=== PATIENT | female | born 1945 | race Caucasian/White ===

== ENCOUNTER → 2018-01-21 09:18 | Outpatient (CLI) | payer MEDICARE, SELFPAY ==
[2018-01-21 10:18] LABS: Alanine Aminotransferase 25 IU/L (9-52); Aspartate Aminotransferase 25 IU/L (14-36); BUN Creatinine Ratio 28.3 (6-22); Blood Urea Nitrogen 17 mg/dL (7-17); Calcium 9.7 mg/dL (8.4-10.2); Carbon Dioxide 30 mmol/L (22-32); Chloride 104 mmol/L (98-107); Cholesterol 170 mg/dL (140-199); Estimated Glomerular Filt Rate > 60.0 mL/min (>60); Glucose 85 mg/dL (80-110); HDL Cholesterol 80 mg/dL (40-60); HEMOLYSIS < 15 (0-50); LDL Cholesterol Calculated 80 mg/dL (<100); Potassium 4.1 mmol/L (3.4-5.1); Sodium 142 mmol/L (137-145); Triglycerides 50 mg/dL (35-150)
== END ==
PROVIDERS: PCP Internal Medicine; Visit Provider Internal Medicine
DX: E78.00 Pure hypercholesterolemia, unspecified (principal); I10 Essential (primary) hypertension; E03.9 Hypothyroidism, unspecified
CPT/HCPCS: 36415; 80048; 80061; 84439; 84443; 84450; 84460

== ENCOUNTER → 2018-04-04 12:36 | Outpatient (CLI) | payer MEDICARE, SELFPAY ==
[2018-04-04 14:17] LABS: TSH w/ Reflex to FT4 0.45 uIU/mL (0.47-4.68)
[2018-04-04 15:29] LABS: Free T4, Direct Thyroxine 1.38 ng/dL (0.78-2.19)
== END ==
PROVIDERS: Family Provider Internal Medicine; PCP Internal Medicine; Visit Provider Internal Medicine
DX: E03.9 Hypothyroidism, unspecified (principal)
CPT/HCPCS: 36415; 84439; 84443

== ENCOUNTER → 2018-07-25 10:27 | Outpatient (CLI) | payer MEDICARE, SELFPAY ==
[2018-07-25 11:07] LABS: Alanine Aminotransferase 34 IU/L (9-52); Aspartate Aminotransferase 27 IU/L (14-36); Cholesterol 162 mg/dL (140-199); HDL Cholesterol 77 mg/dL (40-60); LDL Cholesterol Calculated 76 mg/dL (<100); Triglycerides 43 mg/dL (35-150)
[2018-07-25 11:54] LABS: TSH w/ Reflex to FT4 0.07 uIU/mL (0.47-4.68)
[2018-07-25 12:21] LABS: Free T4, Direct Thyroxine 1.44 ng/dL (0.78-2.19)
== END ==
PROVIDERS: PCP Internal Medicine; Visit Provider Internal Medicine
DX: E78.00 Pure hypercholesterolemia, unspecified (principal); E03.9 Hypothyroidism, unspecified
CPT/HCPCS: 36415; 80061; 84439; 84443; 84450; 84460

== ENCOUNTER → 2018-10-21 12:56 | Outpatient (CLI) | payer MEDICARE, SELFPAY ==
[2018-10-21 15:39] LABS: TSH w/ Reflex to FT4 2.08 uIU/mL (0.47-4.68)
== END ==
PROVIDERS: Family Provider Internal Medicine; PCP Internal Medicine; Visit Provider Internal Medicine
DX: E03.9 Hypothyroidism, unspecified (principal)
CPT/HCPCS: 36415; 84443

== ENCOUNTER → 2019-01-30 10:22 | Outpatient (CLI) | payer MEDICARE, SELFPAY ==
[2019-01-30 12:26] LABS: Alanine Aminotransferase 27 IU/L (9-52); Aspartate Aminotransferase 28 IU/L (14-36); Blood Urea Nitrogen 15 mg/dL (7-17); Calcium 9.7 mg/dL (8.4-10.2); Carbon Dioxide 31 mmol/L (22-32); Chloride 106 mmol/L (98-107); Cholesterol 179 mg/dL (140-199); Estimated Glomerular Filt Rate > 60.0 mL/min (>60); Glucose 81 mg/dL (80-110); HDL Cholesterol 84 mg/dL (40-60); HEMOLYSIS < 15 (0-50); LDL Cholesterol Calculated 84 mg/dL (<100); Potassium 4.3 mmol/L (3.4-5.1); Sodium 142 mmol/L (137-145); Triglycerides 55 mg/dL (35-150)
[2019-01-30 12:51] LABS: TSH w/ Reflex to FT4 1.73 uIU/mL (0.47-4.68)
== END ==
PROVIDERS: PCP Internal Medicine; Visit Provider Internal Medicine
DX: E03.9 Hypothyroidism, unspecified (principal); E78.00 Pure hypercholesterolemia, unspecified; I10 Essential (primary) hypertension
CPT/HCPCS: 36415; 80048; 80061; 84443; 84450; 84460

== ENCOUNTER → 2019-04-03 08:51 | Outpatient (CLI) | payer MEDICARE, SELFPAY ==
--- NOTE | 2019-04-10 16:35 | P.PFT.S_ITS ---
Pulmonary Function Test Referral & Results Date Patient Seen: 04/03/19 Requesting provider: Aakash Koch Results: The spirometry demonstrates an FVC of 2.68 L which is 91% of predicted. The FEV1 was measured at 2.02 L which is 91% of predicted. The FEV1/FVC ratio was 75 which is 100% of predicted. Following the administration of bronchodilator there was a 39% improvement in FEF 25-75%. Lung volumes show an SVC of 2.34 L which is 83% of predicted. The diffusing capacity was measured at 20.05 which is 82% of predicted. The maximum voluntary ventilation was normal Interpretation: This study demonstrates minimal obstructive lung disease with evidence of some improvement in small airway flow based on improvement in FEF 25-75% Compared to PFTs performed in October 2013, current study shows improvement in FE V1 as well as lung volumes and diffusing capacity
== END ==
PROVIDERS: PCP Internal Medicine; Visit Provider Internal Medicine
DX: J44.9 Chronic obstructive pulmonary disease, unspecified (principal)
CPT/HCPCS: 94060; 94726; 94729

== ENCOUNTER → 2019-04-28 11:38 | Outpatient (CLI) | payer MEDICARE, SELFPAY ==
--- NOTE | 2019-04-28 | DI.US.S_ITS ---
PROCEDURE: US PELVIC COMPLETE INDICATIONS: LEFT LOWER QUADRANT PAIN TECHNIQUE: Real-time scanning was performed of the pelvic organs, with image documentation. Additional endovaginal scanning was necessary due to incomplete visualization of the adnexal and endometrial structures by transabdominal scanning. COMPARISON: None. FINDINGS: Transabdominal scanning: Limited scanning through the kidneys shows no hydronephrosis. No pathologic free abdominal or pelvic fluid. Endovaginal scanning: Uterus: Prior hysterectomy. Ovaries: Ovaries not identified. No adnexal masses seen. There is a compressible varicose vein within the left lower quadrant in the region of pain. IMPRESSION: Left lower quadrant varicosity noted in the region of patient's symptoms. Dictated by: Justin DEL VALLE Interpreted: Catie Pineda MD on 04/28/2019 at 16:32 Approved by: Catie Pineda M.D. on 04/28/2019 at 17:32
== END ==
PROVIDERS: PCP Internal Medicine; Visit Provider Physician Assistant
DX: R10.32 Left lower quadrant pain (principal)
CPT/HCPCS: 76856

== ENCOUNTER → 2019-05-07 12:04 | Outpatient (CLI) | payer MEDICARE, SELFPAY ==
--- NOTE | 2019-05-07 | DI.MG.S_ITS ---
BILATERAL DIGITAL SCREENING MAMMOGRAM 3D/2D WITH CAD: 05/07/2019 CLINICAL: Routine screening. Comparison is made to exams dated: 01/15/2017 mammogram, 01/12/2016 mammogram, and 06/02/2014 mammogram - [facility]. There are scattered fibroglandular elements in both breasts. Current study was also evaluated with a Computer Aided Detection (CAD) system. No significant masses, calcifications, or other findings are seen in either breast. There has been no significant interval change. IMPRESSION: NEGATIVE There is no mammographic evidence of malignancy. A 1 year screening mammogram is recommended. This exam was interpreted at Station ID: [id number]. NOTE: For mammograms, a report in lay terms will be sent to the patient. Approximately 15% of breast malignancies will not be visualized mammographically. In the management of a palpable breast mass, a negative mammogram must not discourage biopsy of a clinically suspicious lesion. Electronically Signed By: Madison judd/melly:05/07/2019 13:48:05 letter sent: Normal Exam ACR BI-RADS Category 1: Negative [id number]
== END ==
PROVIDERS: PCP Internal Medicine; Visit Provider Physician Assistant
DX: Z12.31 Encounter for screening mammogram for malignant neoplasm of breast (principal)
CPT/HCPCS: 77063; 77067

== ENCOUNTER → 2020-01-18 10:41 | Outpatient (CLI) | payer MEDICARE, OTHER, SELFPAY ==
--- NOTE | 2020-01-18 | DI.RAD.S_ITS ---
PROCEDURE: FL BARIUM SWALLOW W SPEECH INDICATIONS: Food in pharynx causing asphyxiation/ Lab TECHNIQUE: Examination was conducted in conjunction with speech pathology per standard protocol. In the lateral projection, filming was performed of the patient swallowing. AP projection filming may also be performed with patient swallowing. COMPARISON: None. FINDINGS: Function: The oral preparatory phase appears normal, with proper containment. The subsequent oral propulsive phase, pharyngeal phase, and esophageal phase of swallowing also appear normal with all proffered substances. No laryngotracheal penetration or aspiration. No pathologic vallecular pooling. A 13 mm barium tablet readily passed from the oropharynx to the stomach. Morphology: No cricopharyngeal bar is identified. No cervical esophageal webs. No Zenker's diverticulum. No strictures. IMPRESSION: Normal examination without evidence of aspiration. Dictated by: Stacey Griffith MD, PhD on 01/18/2020 at 13:14 Approved by: Stacey Griffith MD, PhD on 01/18/2020 at 13:23
[2020-01-18 11:54] LABS: Add Manual Diff / Slide Review NO; Basophils Absolute Auto 0 /uL (0-100); Basophils Percent Auto 1.2 % (0-2); Eosinophils Absolute Auto 100 /uL (0-450); Eosinophils Percent Auto 3.7 % (2-4); Hematocrit 42.6 % (36-46); Hemoglobin 14.5 g/dL (12.0-16.0); Lymphocytes Absolute Auto 1200 /uL (1100-4500); Lymphocytes Percent Auto 33.7 % (25-40); Mean Corpuscular Hemoglobin 31.2 PG (26-34); Mean Corpuscular Volume 91.8 fL (80-100); Monocytes Absolute Auto 500 /uL (0-900); Monocytes Percent Auto 13.5 % (3-14); Neutrophils Absolute Auto 1800 /uL (1500-7000); Neutrophils Percent Auto 47.9 % (50-75); Platelet Count 177 X10^3/uL (150-400); Red Blood Cell Count 4.64 X10^6/uL (4.0-5.2); Red Cell Distribution Width 13.9 % (11.6-14.8); White Blood Cell Count 3.7 X10^3/uL (4.5-11.0)
[2020-01-18 12:07] LABS: Alanine Aminotransferase 20 IU/L (<35); Albumin 4.1 g/dL (3.5-5.0); Albumin Globulin Ratio 1.4 (1.0-2.8); Alkaline Phosphatase 54 U/L (38-126); Aspartate Aminotransferase 34 IU/L (14-36); BUN Creatinine Ratio 25.9 (6-22); Bilirubin Total 0.9 mg/dL (0.2-1.3); Blood Urea Nitrogen 14 mg/dL (7-17); Calcium 9.6 mg/dL (8.4-10.2); Carbon Dioxide 28 mmol/L (22-32); Chloride 108 mmol/L (98-107); Cholesterol 176 mg/dL (140-199); Estimated Glomerular Filt Rate > 60.0 mL/min (>60); Globulin 2.9 g/dL (1.7-4.1); Glucose 87 mg/dL (80-110); HDL Cholesterol 66 mg/dL (40-60); HEMOLYSIS < 15 (0-50); LDL Cholesterol Calculated 97 mg/dL (<100); Potassium 3.9 mmol/L (3.4-5.1); Sodium 140 mmol/L (137-145); Triglycerides 67 mg/dL (35-150)
[2020-01-18 12:41] LABS: Free T4, Direct Thyroxine 1.47 ng/dL (0.78-2.19); Vitamin D 25 Hydroxy (D3) 63.5 ng/mL (30.0-100.0)
[2020-01-18 12:55] LABS: Thyroid Stimulating Hormone 1.56 uIU/mL (0.47-4.68)
[2020-01-18 23:07] LABS: Triiodothyronine T3 Total 100 ng/dL (71-180)
--- NOTE | 2020-01-20 10:01 | ST.SWALLOW ---
Visit Care Team Role Provider Type Aakash Koch MD Attending Provider Physician Primary Care Provider Referring Provider Specialty: Wound Care Address: [address] [place] [address], [id number] Email: [email or web address] Modified Barium Swallow Study RECRUITER MANAGER Modified Barium Swallow Study Start: 01/18/20 13:38 Freq: Status: Active Protocol: Document 01/18/20 13:38 [id number] (Rec: 01/18/20 13:38 [id number]) Modified Barium Swallow Study Total Time Visit Start Time 11:30 Visit Stop Time 12:00 Total Visit Minutes [address] Aakash Koch Reason for Referral Aspiration concern, food sticking in throat Setting Setting Outpatient Care Patient Information Identification Type Name,ID Card Patient History The pt is a 74-yr-old female who c/o frequent mild coughing with liquids that often escalates to severe coughing stopped only, but consistently , with use of inhaler. She reports this occurring over the last ~1 yr. She denies difficulty swallowing solids. PMHx includes dx of COPD 5 yrs ago, for which she was treated medicinally. The pt stated that upon f/u with Pulmonology after 5 yrs of tx, she was cleared of COPD. The pt is in need of knee surgery and is concerned of complications with intubation that may trigger cough and result in damage or further complications to swallowing. MBS was ordered to assess swallow prior to surgery. Subjective Observations The pt arrived on time and provided case history. She was able follow all instructions throughout the evaluation. The pt is gluten intolerant; therefore, cookie trial was not administered. Patient Positioning Position View Lat-A/P Imaging Lateral View Textures Administered Trials Presented Thin Liquid via Spoon,Thin Liquid via Cup,Starks Liquid via Spoon,Starks Liquid via Cup,Honey Liquid via Spoon, Dysphagia Blenderized Textures Oral Phase Source: MBSIMP (TM) (C) Bolus Specific Scoring Grid Lip Closure No Impairment (WNL) Tongue Control During Bolus Hold No Impairment (WNL) Bolus Prep/Mastication No Impairment (WNL) Bolus Transport/Lingual Motion No Impairment (WNL) A/P Lingual Propulsion Delay No Oral Residue Minimal Impairment Residue Clearing No Impairment (WNL) Nasal Regurgitation No Additional Oral Phase Observations Oral Peripheral Exam: WNL. All features were symmetrical and WNL of strength, coordination and ROM. Pt has natural dentition in good condition. Oral Phase: WFL. Mild oral residue was observed, not uncommon with barium contrast. Posterior escape of oral residue to vallecula without swallow trigger was observed x2, which could increase risk of aspiration or trigger cough . Otherwise, oral swallow phase was WNL. Pharyngeal Phase Source: MBSIMP (TM) (C) Bolus Specific Scoring Grid Delayed Initiation of Pharyngeal Swallow No: With exception of oral residue posterior escape Number of Seconds Delayed (seconds) Swallow trigger was absent with posterior escape of oral residue x2 Soft Palate Elevation No Impairment (WNL) Tongue Base Strength/Range of Motion WFL Residue Along the Tongue Base Yes: Minimal to mild with liquids only Clearance of Residue Along Tongue Base No Impairment (WNL) Laryngeal Elevation No Impairment (WNL) Anterior Hyoid Movement No Impairment (WNL) Epiglottic Range of Motion No Impairment (WNL) Vallecular Residue Yes: Collection of oral residue only. No residue post active swallow. Clearance of Vallecular Residue No Impairment (WNL) Laryngeal Vestibular Closure No Impairment (WNL) Pharyngeal Stripping Wave No Impairment (WNL) Pharyngeal Contraction No Impairment (WNL) Posterior Pharyngeal Wall Residue No Upper Esophageal Sphincter Opening No Impairment (WNL) Residue in the Pyriform Sinuses Yes: Occ trace around mild osteophyte Clearance of Residue in the Pyriform No Impairment (WNL) Sinuses Esophageal Clearance Upright Position No Impairment (WNL) Pharyngoesophageal Backflow Observed No Additional Pharyngeal Phase Observations Mild protrusion of C6-C7 into pharynx was observed in video review, possibly early stage osteophyte. Occasionally, trace amounts of residual contrast in liquid trials was observed in pyriform sinuses at this level. No significant pooling or collection was observed, and contrast cleared completely with subsequent swallows. No penetration or aspiration was observed with all trials. The pt did exhibit frequent throat clearing, after majority of trials; however, her airway remained clear throughout the study. She had no complaints of sticking sensation. A/P View Textures Administered Trials Presented Starks Liquid via Cup, Dysphagia Blenderized Textures ,Barium Tablet A/P View Observations Pharyngeal Contraction No Impairment (WNL) Esophageal Clearance Upright Position No Impairment (WNL) Esophageal Observations Esophageal Function No abnormal esophageal function observed. Clinical Impressions Dysphagia Type Normal Swallow Findings The pt's swallow function is WNL and appears not to be the source of the pt's coughing symptoms. She is at very low risk of aspiration. During the exam, the pt exhibited consistent throat clearing, although her airway was clear. Other causes of cough worth consideration are asthma, particularly d/t resolution of cough with use of inhaler; GERD/LPR; habitualized throat clearing; and laryngospasm. Although no obvious esophageal impairment was observed in A/P view, GI consultation is recommended given the pt's symptoms, which are consistent with symptoms of GERD/LPR. Referral to Finisher Card Tender is also recommended for assessment of asthma. If asthma and GERD/LPR are ruled out, Speech Pathology services may be warranted for assessment of laryngospasm and /or treatment of chronic cough . No dysphagia therapy is warranted at this time. Recommendations Diet Liquids Order Thin Diet Order Regular Medication Recommendation As Tolerated Aspiration Precautions Recommended Precautions Upright at 90 Degrees,Small Bites/Sips Treatment Plan Recommended Referrals Other,GI Consult Additional Recommended Referrals Finisher Card Tender for asthma assessment. Compensatory Strategies Recommendations Sitting Upright (90 deg) Placement Recommendation After Discharge Home
== END ==
PROVIDERS: PCP Internal Medicine; Referring Provider Internal Medicine; Visit Provider Internal Medicine
DX: R05 Cough (principal); T17.220A Food in pharynx causing asphyxiation, initial encounter; J44.9 Chronic obstructive pulmonary disease, unspecified; E03.9 Hypothyroidism, unspecified; E78.00 Pure hypercholesterolemia, unspecified; M17.0 Bilateral primary osteoarthritis of knee
CPT/HCPCS: 36415; 74230; 80053; 80061; 82306; 84439; 84443; 84480; 85025; 92611

== ENCOUNTER → 2020-05-04 11:04 | Outpatient (CLI) | payer MEDICARE, OTHER, SELFPAY ==
[2020-05-04 11:58] LABS: Add Manual Diff / Slide Review NO; Basophils Absolute Auto 0 /uL (0-100); Basophils Percent Auto 0.1 % (0-2); Eosinophils Absolute Auto 0 /uL (0-450); Hematocrit 42.9 % (36-46); Hemoglobin 14.5 g/dL (12.0-16.0); Lymphocytes Absolute Auto 900 /uL (1100-4500); Mean Corpuscular HGB Conc 33.9 % (30-36); Mean Corpuscular Hemoglobin 31.1 PG (26-34); Mean Corpuscular Volume 91.6 fL (80-100); Monocytes Absolute Auto 1000 /uL (0-900); Monocytes Percent Auto 7.4 % (3-14); Neutrophils Absolute Auto 11300 /uL (1500-7000); Neutrophils Percent Auto 85.5 % (50-75); Platelet Count 241 X10^3/uL (150-400); Red Blood Cell Count 4.68 X10^6/uL (4.0-5.2); Red Cell Distribution Width 13.2 % (11.6-14.8); White Blood Cell Count 13.3 X10^3/uL (4.5-11.0)
[2020-05-04 12:03] LABS: Hemoglobin A1C% w Est Avg Glu 5.5 % (4.0-6.0)
[2020-05-04 12:09] LABS: BUN Creatinine Ratio 32.1 (6-22); Blood Urea Nitrogen 17 mg/dL (7-17); Calcium 10.2 mg/dL (8.4-10.2); Carbon Dioxide 26 mmol/L (22-32); Chloride 106 mmol/L (98-107); Estimated Glomerular Filt Rate > 60.0 mL/min (>60); Glucose 110 mg/dL (80-110); HEMOLYSIS < 15 (0-50); Sodium 141 mmol/L (137-145)
== END ==
PROVIDERS: PCP Student in an Organized Health Care Education/Training Program; Referring Provider Orthopaedic Surgery Adult Reconstructive Orthopaedic Surgery; Visit Provider Physician Assistant
DX: Z01.812 Encounter for preprocedural laboratory examination (principal); Z01.818 Encounter for other preprocedural examination; R73.9 Hyperglycemia, unspecified; K51.20 Ulcerative (chronic) proctitis without complications
CPT/HCPCS: 36415; 80048; 83036; 85025; 93005; 93010

== ENCOUNTER → 2020-05-13 10:57 | Outpatient (CLI) | payer MEDICARE, OTHER, SELFPAY ==
[2020-05-15 09:28] LABS: COVID19 Sendout Not Detected (Not Detect)
== END ==
PROVIDERS: PCP Student in an Organized Health Care Education/Training Program; Visit Provider Physician Assistant
DX: Z11.59 Encounter for screening for other viral diseases (principal)
CPT/HCPCS: 87635

== ENCOUNTER 2020-05-16 06:16 | Inpatient (IN) | payer MEDICARE, OTHER, SELFPAY ==
[2020-05-09 08:50] VITALS: BMI 24.4
[2020-05-16] VITALS (21 sets, daily range): BP systolic 110–139; BP diastolic 43–86; PULSE 72–103; RESP 9–18; TEMP 35.8–36.8; O2SAT 93–100; BMI 24.0
--- NOTE | 2020-05-16 06:00 | DI.RAD.S_ITS ---
PROCEDURE: XR KNEE LT 1TO2V INDICATIONS: post op films TECHNIQUE: 2 view(s) of the knee acquired. COMPARISON: [facility], , KNEE 1-2 VIEWS LEFT, 03/21/2016, 10:58. FINDINGS: Bones: Patient is status post knee joint arthroplasty revision. Hardware components are in expected positions. Visualized bony structures are intact. Soft tissues: Overlying postoperative changes are noted. IMPRESSION: Post surgical changes from left total knee arthroplasty revision with anatomic left knee alignment. Dictated by: Nawaf Hurtado M.D. on 05/16/2020 at 14:01 Approved by: Nawaf Hurtado M.D. on 05/16/2020 at 14:01
[2020-05-16] MEDS: LACTATED RINGERS 1,000 ML 42 ML IV ×3 (07:09→13:00)
[2020-05-16] MEDS: PREGABALIN 75 MG CAPSULE PO (07:40)
[2020-05-16] MEDS: ACETAMINOPHEN 325 MG TABLET 975 MG PO ×2 (07:41→14:15)
--- NOTE | 2020-05-16 07:44 | PM.PREOP ---
Pre-operative Note COVID-19 COVID-19 status: Negative Result date/Date tested (Pos, Neg/Pending): 05/13/20 Interval Note History & Physical reviewed/Exam performed by Physician: Yes Changes to H&P: No H&P completed within 30 days and has changed as indicated here:: Plan for revision L TKA for tibial base plate loosening and pain
[2020-05-16] MEDS: MIDAZOLAM 2 MG/2 ML VIAL IV (07:49)
[2020-05-16] MEDS: CEFAZOLIN 2 GM/100 ML FROZ.PIGGY IV ×2 (07:56→16:35)
[2020-05-16] MEDS: TRANEXAMIC ACID 1,000 MG VIAL 1000 MG INJ ×2 (08:45→11:22)
--- NOTE | 2020-05-16 09:00 | SUR.OPER ---
Supine on padded OR bed. Pillow under head, arms secured on padded armboards <90 degree abduction. Safety belt across torso. Non-operative leg secured with tape over blanket over lower leg. Operative leg Nathe positioner. [place] bump under left hip and under left calf.
[2020-05-16] MEDS: KETOROLAC 30 MG/ML VIAL IV (09:14)
[2020-05-16] MEDS: MORPHINE 4 MG/ML INJ INJ (09:14)
[2020-05-16] MEDS: ROPIVACAINE 0.5% PF 5 MG/ML 20ML VIAL 60 ML INJ (09:14)
[2020-05-16] MEDS: VANCOMYCIN 1,000 MG VIAL 1000 MG TOP (09:17)
[2020-05-16] MEDS: SODIUM CHLORIDE IRRIG SOLUTION 250 ML, POVIDONE-IODINE SPONGE STICKS 1 APPLIC IRR (11:11)
--- NOTE | 2020-05-16 12:03 | PM.OP.1 ---
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 Post-op diagnosis: same Procedure & Clinicians Procedure: revision L TKA Same procedure as scheduled: Yes Indications: loosening of tibial baseplate with pain Surgeon: Mitch Winters Demolition Specialist: Navid Carrizales Anesthesia Type: General Operative Notes Findings: tibial base plate loosening, no gross sign of infection Closure Type: non-primary Specimen(s): other (2x cultures ) Prosthetic devices, grafts, tissues, transplants, or devices: Benson Nephew size 4 legion femur 13 mm x 160 mm legion Press-Fit stem 2x 5 mm distal augments 4 mm legion offset line decorator Size 4 left legion revision tibial base plate 11 mm x 160 mm legion Press-Fit stem 6 mm legion offset line decorator Size 3-4 15 mm kay 2 constrained articular insert Estimated Blood Loss (mL): 200 Blood products transfused: none Tourniquet time (min): 100 Procedure in detail: Patient was met in the preoperative holding area where the site and side of surgery were marked by MD. Informed consent had been reviewed in clinic but was reviewed in the preoperative holding area as well. Risks and benefits of surgery were reviewed including risk of infection, iatrogenic fracture, delayed wound healing, DVT, PE, need for future surgeries, incomplete relief of symptoms, etc. Patient demonstrates understanding the risks and benefits of surgery and wishes to proceed with a revision of a left total knee arthroplasty. Patient was then brought back in the operating room where a spinal anesthetic was attempted but was unable to be placed. Patient was then transferred onto the operating room table and induced under general anesthesia. A nonsterile tourniquet was then placed on left thigh and the left lower extremity then prepped and draped in normal sterile fashion. A surgical time-out was performed verifying the site and side of surgery as well as the name of the patient. A longitudinal incision over the left knee was made through her old surgical scar using #10 blade. Medial and lateral flaps were then elevated using a 10. Blade. A medial parapatellar arthrotomy was then performed a medial peel was then performed using electrocautery as well as freeing up of the patellar tendon as it had scarred down to the anterior tibia. We then performed a synovectomy clearing of the medial and lateral gutters. This allowed us to translate the patella. We able to flex the knee up and removed the polyethylene insert. I then use revision saw blade to cut the interface of the femoral component and the femur this was done for the medial and lateral side followed by a flexible sharp osteotome. A bone tamp was then used to remove the femoral component from the end of the femur. We noted minimal bone loss with this removal excess cement fragments were then removed. Then turned attention to the tibial side. A new revision style plate was then used at the interface of the tibial base plate and the tibia followed by a narrow oscillating saw blade. The tibia was then maximally sublux forward which allowed us to pass the saw blade posteriorly to the medial side and free up the base plate behind the keel. Bone tamp was then used to remove the tibial component. Cement flags were then used to remove the cement plug. We then began hand reaming down the canal to a depth of 160mm. We got up to size 11 on the tibia with good canal fit and then we turned our attention to the femoral side and got to a size 13 with good canal fit. We then turned our attention back to the tibial side left the size 11 Reamer in the tibia and placed the revision Steven over this Reamer to make our revision tibial cut. Medius skimming cut removing approximately 1 mm of bone. We then sized the tibia to a size 4 and determined that it would need a 6 mm offset. This was selected and then prepped using reamers. We then turned our attention to the femoral side. The 13 mm Reamer was then replaced into the femoral canal and the revision valgus cutting block was placed over this to meet skimming distal femoral cuts. External rotation was then set using floating technique based off the tibial cut. Tourniquet was let down at 90 minutes. This was then pinned into place and our chamfer cuts were made. We then prepped for the line decorator which was a size 4 mm line decorator. We then determined that our flexion gap with actually tighter than our extension gap so we needed distal eyes the femur we took 2 more mm off the distal femur and added 5 mm distal augments. We then placed our trial components and a 15 mm polyethylene insert was appropriate for matching our flexion-extension gaps. Trial components were then removed. T The offset line decorator for the femur was then 3 clock position and the offset line decorator for the tibia was at the 2 o'clock position the final components were assembled on the back table and malleted securely together. Cement mixing began. The tourniquet was then reinflated and the knee was thoroughly irrigated with pulse lavage and local anesthetic was injected in the back of the knee. The cut surfaces were then thoroughly dried and cement was placed on the back of the tibial component including to level the line decorator as well as being finger packed on the cut surface of the tibia. The tibial component was then placed and malleted into place excess cement was then removed set was then placed on the cut ends of the femur as well as the posterior aspect of the femoral component as well as the junction of the line decorator. The femur was then malleted into place and excess cement was removed a 15 mm trial poly was then placed and the knee was brought into full extension and the cement was allowed to fully cure. During this time Betadine solution was placed into the wound allowed to sit for several minutes this was then irrigated away with copious normal saline. Once the cement was fully cured the trial component was removed all excess cement was removed and a 15 mm thick size 3-4 constrained polyethylene was selected and placed. Medial and lateral tabs were confirmed to be engaged. The knee was brought through range of motion the patella was tracking well. The medial parapatellar arthrotomy was then repaired using 1. Vicryl interrupted fashion followed by running Quill suture 1. Vicryl was used in this fat layer for running a fat stitch followed by a 2 0 Vicryl in the subcutaneous layer placed in interrupted fashion followed by nadiya on skin and a kanwal dressing. Complications: none Post-operative Condition: stable Disposition: PACU Plan for aftercare: WBAT LLE, 24 hours post-op abx, ASA 81mg BID for 6 weeks
[2020-05-16] MEDS: fentaNYL 100 MCG/2 ML INJ IV ×4 (12:26→13:02)
[2020-05-16] MEDS: OXYCODONE IR 5 MG TABLET PO ×2 (12:27→12:59)
[2020-05-16] MEDS: MEPERIDINE 50 MG/ML INJ 25 MG IV (13:17)
--- NOTE | 2020-05-16 14:47 | SUR.PHASEI ---
Addendum entered by Danielle Abernathy R.N. 05/16/20 14:49: femoral block with US guidance and nerve stimulator by Dr Pedersen. Original Note: Block start time [1436] . Monitoring initiated and maintained throughout procedure. Oxygen at 2 LPM and medications given per anesthesiologist instructions. Patient remained stable throughout procedure, no adverse reactions noted. Block end time [1443].
[2020-05-16] MEDS: ACETAMINOPHEN 325 MG TABLET 650 MG PO ×2 (16:35→21:00)
[2020-05-16] MEDS: GABAPENTIN 300 MG CAPSULE PO (16:36)
[2020-05-16] MEDS: LACTATED RINGERS 1,000 ML 100 ML IV (16:37)
[2020-05-16] MEDS: OXYCODONE IR 10 MG TABLET PO ×2 (17:16→21:01)
--- NOTE | 2020-05-16 19:34 | PC.NURSE ---
Post-op notes: Anne brought to rm 222 at 1523. Patient awake, oriented x 3 & situation. VS are stable. Reported a lot of pain after she woke up from surgery, reports pain 4/10 to L knee and said she is comfortable after nerve block. Left knee with marina wrap drsg CDI. No drain. Ice packs applied. Good pedal pulses, wiggling toes and feet but said the bottom of her left foot is somewhat numb, said she can feel pressure of nurse hand but not if it is cold or hot. LR infusing to R hand IV with no difficulty. Antibiotic infused per schedule. Pt denies nausea & tolerating regular snacks, refused most of dinner saying she was not really hungry. Patient has voided 850 ml via bedpan. Fall precautions in place, instructed her to call nurse for any needs/concerns or if needs to go to the bathroom. She agrees to this plan. Spouse here visiting but now gone for the night.
[2020-05-16] MEDS: ROSUVASTATIN 10 MG TABLET PO (21:00)
[2020-05-16] MEDS: ASPIRIN EC 81 MG TABLET PO (21:00)
[2020-05-16] MEDS: atenoloL 25 MG TABLET PO (21:00)
[2020-05-16] MEDS: TIZANIDINE 4 MG TABLET PO (21:00)
[2020-05-16] MEDS: DOCUSATE 100 MG CAPSULE PO (21:00)
[2020-05-16] MEDS: MESALAMINE 0.375 GM 2 EACH PO (21:02)
[2020-05-16 21:53] LABS: INR 1.1 (0.9-1.3); Prothrombin Time 12.2 SECONDS (10.1-12.7)
[2020-05-17] MEDS: CEFAZOLIN 2 GM/100 ML FROZ.PIGGY IV (00:24)
--- NOTE | 2020-05-17 00:55 | PC.NURSE ---
Pt. checked twice she's sound asleep, will monitor.
[2020-05-17] MEDS: OXYCODONE IR 10 MG TABLET PO ×7 (01:42→21:41)
[2020-05-17 01:45] VITALS: BP 105/54; PULSE 64; RESP 22; TEMP 36.7; O2SAT 92
[2020-05-17 04:35] VITALS: BP 114/53; PULSE 67; RESP 20; TEMP 37.2; O2SAT 98
[2020-05-17] MEDS: LEVOTHYROXINE 25 MCG TABLET PO (05:48)
[2020-05-17 05:54] LABS: Hematocrit 35.4 % (36-46)
[2020-05-17 08:00] VITALS: BP 117/65; PULSE 73; RESP 14; TEMP 36.1; O2SAT 100
[2020-05-17] MEDS: DOCUSATE 100 MG CAPSULE PO ×2 (09:22→21:41)
[2020-05-17] MEDS: atenoloL 25 MG TABLET PO ×2 (09:22→21:41)
[2020-05-17] MEDS: MESALAMINE 0.375 GM 2 EACH PO ×2 (09:22→21:45)
[2020-05-17] MEDS: CHOLECALCIFEROL (VITAMIN D3) 5,000 UNIT TABLET 5000 UNIT PO (09:22)
[2020-05-17] MEDS: estradioL 0.5 MG TABLET PO (09:22)
[2020-05-17] MEDS: MULTIVITAMIN 1 TABLET 1 TAB PO (09:22)
[2020-05-17] MEDS: ACETAMINOPHEN 325 MG TABLET 650 MG PO ×3 (09:22→21:41)
[2020-05-17] MEDS: ASPIRIN EC 81 MG TABLET PO ×2 (09:23→21:45)
[2020-05-17] MEDS: SODIUM CHLORIDE 0.9% FLUSH 10 ML IV ×2 (09:23→21:46)
[2020-05-17] MEDS: polyethylene glycoL 3350 17 GM POWD.PACK PO (09:40)
--- NOTE | 2020-05-17 10:04 | PM.PNPO.1 ---
Subjective Subjective Date Patient Seen: 05/17/20 Time Patient Seen: 07:40 Interval history: Pain is 7/10. No fever chills. No nausea vomiting. Denies shortness of breath or chest pain. Exam Vital Signs (past 8 hours): - 05/17/20 04:35 05/17/20 08:00 Temperature 99 F 97.0 F L Pulse Rate 67 73 Respiratory Rate 20 14 Blood Pressure 114/53 L 117/65 Pulse Oximetry 98 100 Oxygen Delivery Method Room Air Oxygen Flow Rate 0 Narrative Exam Narrative: Pleasant 75-year-old female resting comfortably in bed in no apparent distress. Dressing is clean, dry and intact. Tamara dressing is on and functioning. Motor functions intact bilateral lower extremities. Sensation grossly intact to light touch bilateral lower extremities. Both legs are warm and dry. SCDs on and functioning. Objective Labs Result Diagrams: 05/17/20 05:24 Labs: Laboratory Results - last 24 hr 05/16/20 05/17/20 21:40 05:24 Hgb 12.0 Hct 35.4 L PT 12.2 INR 1.1 Assessment & Plan Post-op Postoperative Procedures: Procedures Operation Date: 05/16/20 07:45 Actual Procedures Side Surgeon p Total Knee Arthroplasty Revision Left Mitch Winters MD patient progressing as expected postop day 1. Mobilize with physical therapy. Weightbearing as tolerated. Likely discharge home in 1-2 days.
--- NOTE | 2020-05-17 10:52 | PT.IIE ---
Current Diagnoses Broken internal joint prosthesis, other site, subsequent encounter (05/16/20) Presence of left artificial knee joint (05/16/20) Surgery Performed Operation Date: 05/16/20 07:45 Actual Procedures p Total Knee Arthroplasty Revision(Left) - Mitch Winters MD Surgical History (Last Updated 05/09/20 @ 09:43 by Linda Velazquez RN) H/O cardiac radiofrequency ablation (Acute) History of arthroplasty of left knee (Acute 03/21/16) History of colonoscopy (Acute) History of esophagogastroduodenoscopy (EGD) (Acute) History of hysterectomy (Acute) History of surgery (Acute) Hx of appendectomy (Acute) Hx of arthroscopy of left knee (Acute) Hx of cholecystectomy (Acute) Hx of lumbar discectomy (Acute) Hx of tonsillectomy (Acute) Medical History (Last Updated 05/09/20 @ 09:43 by Linda Velazquez RN) Cervical osteoarthritis (Acute) Chronic neutropenia (Acute) Colon polyps (Acute) COPD (chronic obstructive pulmonary disease) (Acute) Diverticulitis (Acute) Eczema (Acute) Former smoker (Acute) History of Mohs micrographic surgery for skin cancer (Acute) HLD (hyperlipidemia) (Acute) Hypothyroidism (Acute) Migraines (Acute) Nephrolithiasis (Acute) Pneumonia (Acute) Spinal stenosis (Acute) SVT (supraventricular tachycardia) (Acute) Ulcerative colitis with complication (Acute) Vitamin D deficiency (Acute) Physical Therapy Inpatient Evaluation/Re-Eval M1 PT/OT-IP Prior Functional Status Start: 05/17/20 12:35 Freq: NEEDED Status: Active Protocol: Document 05/17/20 10:52 AB (Rec: 05/17/20 12:51 AB [id number]) Medical Review Prior Functional Status Medical History Reviewed Yes Communication able to make needs known Mobility and Gait pt stated that she is independent with all mobilities and ambulation without AD but occasionally uses a SPC but had used it more often this last few weeks prior to surgery Social History Household Members spouse Living Arrangements House Number of Floors (Floors) One Floor Number of Stairs To Enter/Railing? 7 steps to enter from the garage with B rails Pt stated that her alternative way to get it but will be their last resort will be getting in from the back patio with 2 steps and they will put in a portable ramp and stated they have a w/c as well Home Environment Standard Height Toilet,Walk in Shower,Built-In Shower Seat Home Equipment Front Wheel Walker,Straight Cane,Manual Wheelchair,Raised Toilet Seat Without Armrests Additional Social History Comment pt has a toilet safety frame M2 PT-IP Current Condition Start: 05/17/20 12:35 Freq: NEEDED Status: Active Protocol: Document 05/17/20 10:52 AB (Rec: 05/17/20 12:51 AB [id number]) Physical Therapy Current Condition Current Condition Evaluation Date 05/17/20 Treatment Diagnosis s/p L TKA revision; difficulty in walking Onset Date 05/16/20 Weight Bearing Status Weight Bearing Status Weight Bear as Tolerated Allowed Weight Bearing Amount (enter % WBAT LLE or #) (%) M3 PT-IP Subjective Start: 05/17/20 12:35 Freq: NEEDED Status: Active Protocol: Document 05/17/20 10:52 AB (Rec: 05/17/20 12:51 AB [id number]) Subjective Physical Therapy Visit Type Type Initial Evaluation Visit Start Time 10:52 Visit Stop Time 11:59 Total Visit Minutes 67 Number of SENIOR INSPECTOR Visits 0 Physical Therapy Visit Comments Patient Comments agreeable to do PT Therapy Pain Assessment Pain When Pain Assessed At Rest Pain Present Pain Present Pain Reported Location Left Knee Intensity 8 Scale Used increases with mobility Pain Management Techniques Distraction,Modification of Treatment,Re-positioning, Timing of Activity with Medications M4 PT-IP Mobility and Gait Start: 05/17/20 12:35 Freq: NEEDED Status: Active Protocol: Document 05/17/20 10:52 AB (Rec: 05/17/20 12:51 AB [id number]) PT-Bed Mobility Assessment Supine to Sit Supine to Sit Maximum Assistance,1 Person Assistance Sit to Supine Sit to Supine Moderate Assistance,1 Person Assistance Scooting Scooting to Edge of Bed Minimal Assistance PT-Transfer Assessment Sit to and From Stand Sit to and from Stand Moderate Assistance,Maximum Assistance,1 Person Assistance ,Use of Upper Extremities Equipment Transfer Assistive Device Gait Belt,Front Wheeled Walker Orthotic/Prosthetic Devices or Brace: No Transfers Transfer Destination Bed,Chair,Bedside Commode Transfer Technique Stand Step Pivot Transfer Ability Level of Assist Moderate Assistance,Maximum Assistance,1 Person Assistance ,Use of Upper Extremities Comments Mobility Comments pt with nurse/NAC transferring to the bedside commode using FWW. PT assisted. pt required max A and max cues. c/o increase L knee pain and unable to bend without pain. assisted pt with L knee to ease down to the floor. pt completed sit to stand from the bedside commode mod/max A and max cues and completed step transfer to bed using FWW max A and cues. completed sit to supine mod A. completed heel slides AAROM on L knee. completed supine to sit max A and max cues. pt continues to c/o increase pain . completed sit to stand mod/ max A and max cues and transferred to chair using FWW mod /max A. pt tends to not put weight on LLE and just hop . educated pt on importance of weight bearing and how it will affect eventually stair climbing. pt understood. postioned pt on chair. call light and table placed within reach. Gait Assessment Comments Gait Comments able to take steps during transfers but unable to ambulate due to c/o pain on L knee PT-Balance Assessment Sitting Balance and Reactions Static Sitting Balance Ability Good Dynamic Sitting Balance Ability Good Standing Balance and Reactions Static Standing Balance Ability Fair Dynamic Standing Balance Ability Poor Device Used FWW M5 PT-IP Objective Assessments Start: 05/17/20 12:35 Freq: NEEDED Status: Active Protocol: Document 05/17/20 10:52 AB (Rec: 05/17/20 12:51 AB [id number]) Orientation Orientation/Cognition Level of Alertness Alert Orientation Name Safety Awareness Decreased Safety Awareness Gross Range of Motion Lower Extremity ROM Assessment Left Impaired Impairments L knee flexion: ~ 30 deg PROM L knee extension: ~ 20 deg less to neutral Strength Lower Extremity Strength Assessment Left Impaired Hip 3+/5 Knee 3-/5 Coordination Assessment Gross Coordination Gross Coordination WNL Muscle Tone Muscle Tone WNL Yes M6 PT-IP Treatment Start: 05/17/20 12:35 Freq: NEEDED Status: Active Protocol: Document 05/17/20 10:52 AB (Rec: 05/17/20 12:51 AB [id number]) Physical Therapy Treatment Exercises Exercises Ankle Pumps,Gluteal Sets,Quad Sets,Heel Slides Education Education Provided Precautions,Weight Bearing Status,Post-Op Packet,Safety Other Treatments Other Treatment Performed educated pt and spouse regarding equipment needs. M7 PT-IP Assessment and Plan Start: 05/17/20 12:35 Freq: NEEDED Status: Active Protocol: Document 05/17/20 10:52 AB (Rec: 05/17/20 12:51 AB [id number]) PT Summary Assessment and Plan Potential Rehabilitation Potential Good Status of Condition at Evaluation Evolving Summary Impairments Pain,ROM,Strength,Balance, Coordination,Sensation,Tone, Cognition,Bed Mobility, Transfers,Gait,Activity Tolerance Assessment Summary pt requiring mod/max A with mobility using FWW and unable to ambulate and tolerate much activity due to c/o increase L knee pain. d/c plan depending progress and will conduct caregiver training when appropriate but at this time, pt will require SNF rehab. will continue to assess progress Goals Bed Mobility Goal Standby Assistance Transfer Goal Standby Assistance,Front Wheeled Walker Gait Goal Standby Assistance,Front Wheel Walker Gait Distance 150 Other Goals u/down 7 steps B rails SBA Days to Meet Goals 10 Frequency of Treatment Frequency Of Treatment Twice a Day Treatment Plan Physical Therapy Treatment Plan Bed Mobility Training,Transfer Training,Gait Training, Therapeutic Exercise,Balance Retraining,Post Op Education, Discharge Planning,Hot or Cold Pack,Neuromuscular Re-ed, Coordination Retraining,Manual Therapy Recommendations To Nursing Amount of Assist Needed 2 Person Assist Discharge Recommendations PT Discharge Recommendations Home with 24/7 Assist,Home Health,SNF Rehab Other Discharge Recommendations depending on progress: SNF vs home with 24/7 and HHPT Transportation Needs at Discharge Private Vehicle,Wheelchair/ Cabulance
[2020-05-17 13:00] VITALS: BP 127/56; PULSE 86; RESP 16; TEMP 37.2; O2SAT 98
--- NOTE | 2020-05-17 13:21 | CM.DANOTE ---
DCP: Case received, EMR reviewed and met with patient. , Aakash, also at bedside. Was able to obtain information regarding patient's baseline activity level prior to surgery. DCP assessment completed with information currently available. Patient is a 75 year old female who admitted yesterday morning to the care of the orthopedic team. PCP: Dr. Ferguson. Payer[facility] Patient came to the hospital for a surgical procedure. She had a revision of right total knee arthroplasty. Patient had failed TKA loosening of tibial back plate. Met with patient in her room. She is alert and oriented, pleasant. , Aakash in the room as well. She resides with her in [place]. She has two daughters that live in [place] [facility] with children. Stated, due to the COVID situation, they won't really be able to help. Patient indicated, she really wants to go home with home health, she has been to [facility] before. Stated, she thinks that home health has already been ordered. Patient has been independent at baseline, uses a cane. Stated, her has also had eye issues, and was recently cleared to drive. Gave patient Medicare Choice list. Encouraged her to make a back up plan of skilled rehab, if this is what she needs. She is Medicare, and would qualify for skilled by . Called triage nurse at [facility] to inquire if home health has been ordered, and which agency. Rachele at [facility] stated that [facility] has been ordered. Called Jeffrey at [facility]. He stated that he has the referral and face to face, but had been trying to get in touch with patient. Let him know that she is still here in the hospital. P.T. is the only discipline for home health that has been ordered. Called Izabela at [facility], for patient indicated, she would be willing to go there if she needs it. January is reviewing, and is aware that she would be ready to discharge by . P: DCP to continue to follow. First plan is for home with [facility] They would just need orders and discharge summary. Alternate plan is [facility], and she would be eligable by . Iva Grullon RN/Welding Inspector
--- NOTE | 2020-05-17 14:44 | PT.IPTN ---
Current Diagnoses Broken internal joint prosthesis, other site, subsequent encounter (05/16/20) Presence of left artificial knee joint (05/16/20) Surgery Performed Operation Date: 05/16/20 07:45 Actual Procedures p Total Knee Arthroplasty Revision(Left) - Mitch Winters MD Physical Therapy Treatment Note M2 PT-IP Current Condition Start: 05/17/20 12:35 Freq: NEEDED Status: Active Protocol: Document 05/17/20 10:52 AB (Rec: 05/17/20 12:51 AB [id number]) Physical Therapy Current Condition Current Condition Evaluation Date 05/17/20 Treatment Diagnosis s/p L TKA revision; difficulty in walking Onset Date 05/16/20 Weight Bearing Status Weight Bearing Status Weight Bear as Tolerated Allowed Weight Bearing Amount (enter % WBAT LLE or #) (%) M3 PT-IP Subjective Start: 05/17/20 12:35 Freq: NEEDED Status: Active Protocol: Document 05/17/20 13:50 CLB (Rec: 05/17/20 15:47 CLB [email or web address]) Subjective Physical Therapy Visit Type Type Treatment Note Visit Start Time 13:50 Visit Stop Time 14:44 Total Visit Minutes 54 Number of MIDDLE[place] ADMINISTRATOR Visits 1 Physical Therapy Visit Comments Patient Comments agreeable to do PT Therapy Pain Assessment Pain When Pain Assessed At Rest Pain Present Pain Present Pain Reported Location Left Knee Intensity 8 Scale Used increases with mobility Pain Management Techniques Distraction,Modification of Treatment,Re-positioning, Timing of Activity with Medications M4 PT-IP Mobility and Gait Start: 05/17/20 12:35 Freq: NEEDED Status: Active Protocol: Document 05/17/20 13:50 CLB (Rec: 05/17/20 15:47 CLB [id number]) PT-Bed Mobility Assessment Supine to Sit Supine to Sit Minimal Assistance,1 Person Assistance Sit to Supine Sit to Supine Moderate Assistance,1 Person Assistance Scooting Scooting to Edge of Bed Minimal Assistance PT-Transfer Assessment Sit to and From Stand Sit to and from Stand Minimal Assistance,1 Person Assistance,Use of Upper Extremities Equipment Transfer Assistive Device Gait Belt,Front Wheeled Walker Orthotic/Prosthetic Devices or Brace: No Transfers Transfer Destination Bed,Chair Transfer Technique Stand Step Pivot Transfer Ability Level of Assist Minimal Assistance,1 Person Assistance,Use of Upper Extremities Comments Mobility Comments Pt in bed upon arrival performed therapeutic exercises in bed. Pt required Min A of LLE while scooting to EOB and increased time due to pain. Pt then stood Min A and ambulated ~9ft w/FWW/SBA. Pt pain increased further with gait and pt required Min A to sit in chair. Chair was rolled near be bed and pt stood Min A and performed stand step pivot to sit on EOB and then required Mod A sit-supine. Pt was left in bed with all needs within reach, alarm on and present. Gait Assessment Gait Gait Assistance Required: Minimum Assistance,1 Person Assist Distance (Feet) 9 Able to Maintain Weight Bearing Status Yes During Gait Assistive Devices Assistive Device Gait Belt,Front Wheeled Walker Gait Deviations General Gait Pattern Antalgic,Decreased Stride Length,Decreased Feet Clearance,Narrow Based Gait, Step-to Gait Factors Limiting Gait Function Factors Limiting Gait Function Decreased Activity Tolerance, Limited Range of Motion,Pain, Poor Balance Comments Gait Comments Pt with heavy use of UE's during gait but was able to BW through LLE. Pt took small step to gait pattern. M5 PT-IP Objective Assessments Start: 05/17/20 12:35 Freq: NEEDED Status: Active Protocol: Document 05/17/20 10:52 AB (Rec: 05/17/20 12:51 AB [id number]) Orientation Orientation/Cognition Level of Alertness Alert Orientation Name Safety Awareness Decreased Safety Awareness Gross Range of Motion Lower Extremity ROM Assessment Left Impaired Impairments L knee flexion: ~ 30 deg PROM L knee extension: ~ 20 deg less to neutral Strength Lower Extremity Strength Assessment Left Impaired Hip 3+/5 Knee 3-/5 Coordination Assessment Gross Coordination Gross Coordination WNL Muscle Tone Muscle Tone WNL Yes M6 PT-IP Treatment Start: 05/17/20 12:35 Freq: NEEDED Status: Active Protocol: Document 05/17/20 13:50 CLB (Rec: 05/17/20 15:47 CLB [id number]) Physical Therapy Treatment Exercises Exercises Ankle Pumps,Gluteal Sets,Quad Sets,Heel Slides Education Education Provided Precautions,Weight Bearing Status,Post-Op Packet,Safety M7 PT-IP Assessment and Plan Start: 05/17/20 12:35 Freq: NEEDED Status: Active Protocol: Document 05/17/20 13:50 CLB (Rec: 05/17/20 15:47 CLB [email or web address]) PT Summary Assessment and Plan Summary Impairments Pain,ROM,Strength,Balance, Coordination,Sensation,Tone, Cognition,Bed Mobility, Transfers,Gait,Activity Tolerance Progress Towards Goals Slow Progress due to Pain Assessment Summary Pt requiring increased time for all tasks due to pain. Pt requires assist with LLE in and out of bed and AA with exercises. Discharge continues to depend on pt progress and will conduct caregiver training when appropriate but at this time, pt will require SNF rehab. Further assessment needed. Goals Bed Mobility Goal Standby Assistance Transfer Goal Standby Assistance,Front Wheeled Walker Gait Goal Standby Assistance,Front Wheel Walker Gait Distance 150 Other Goals u/down 7 steps B rails SBA Days to Meet Goals 10 Frequency of Treatment Frequency Of Treatment Twice a Day Treatment Plan Physical Therapy Treatment Plan Bed Mobility Training,Transfer Training,Gait Training, Therapeutic Exercise,Balance Retraining,Post Op Education, Discharge Planning,Hot or Cold Pack,Neuromuscular Re-ed, Coordination Retraining,Manual Therapy Recommendations To Nursing Amount of Assist Needed 2 Person Assist Discharge Recommendations PT Discharge Recommendations Home with 24/7 Assist,Home Health,SNF Rehab Other Discharge Recommendations depending on progress: SNF vs home with 24/7 and HHPT Transportation Needs at Discharge Private Vehicle,Wheelchair/ Cabulance
--- NOTE | 2020-05-17 16:19 | PC.NURSE ---
Addendum entered by Allyson Huizar R.N. 05/17/20 21:10: Pt reported L knee pain 02/18, medicated with oxycodone. Told me she does not know if the hydroxyzine did anything. Pt requested rest period saying I didn't sleep at all last night. Sign posted on door, ENGINEER CHIEF aware that pt requests to sleep until 2129 when pain med due again. Since medicated she has been observed with eyes closed, no facial grimace, no sign or symptoms of distress. Original Note: Evening note: Anne is resting in bed, face johanna, has slight chills or full body tremor. VS stable, low grade temp 99.0. She reports significant pain to her left knee still a 7 or 8, medicated with Oxycodone 10 mg. Knee is observably swollen, dull brown bruising around top of kanwal drsg site, drsg is CDI, kanwal box blinking green light & active. CMS intact, denies numbness to LLE. Pulses present, she is moving LLE, foot & toes. 3 ice packs are in place with marina wrap off at this time, so that ice packs are therapeutic. SCD's turned off at this time per her request, as she said she cannot sleep with them on and all I want to do is fall asleep for a little while. Appears somewhat nervous re: pain, words of encouragement offered, we talked about how nerve block has most likely worn off & how POD #1 is normally the hardest for our orthopedic hip & knee patients. I notified Dr Winters of patient's pain level, and asked if hydroxyzine would be an option. He ordered hydroxyzine 25 prn. Patient is now asleep, when meal trays are passed I will wake her and medicate with hydroxyzine.
[2020-05-17 16:21] VITALS: BP 129/67; PULSE 87; RESP 18; TEMP 36.4; O2SAT 97
[2020-05-17] MEDS: hydrOXYzine pamoate 25 MG CAPSULE PO ×2 (16:53→21:45)
[2020-05-17] MEDS: GABAPENTIN 300 MG CAPSULE PO (16:53)
[2020-05-17] MEDS: MELATONIN 3 MG TABLET 9 MG PO (21:43)
[2020-05-17] MEDS: ROSUVASTATIN 10 MG TABLET PO (21:45)
[2020-05-17] MEDS: TIZANIDINE 4 MG TABLET PO (21:45)
[2020-05-18 03:00] VITALS: BP 106/67; PULSE 84; RESP 18; TEMP 36.6; O2SAT 97
[2020-05-18] MEDS: hydrOXYzine pamoate 25 MG CAPSULE PO (03:13)
[2020-05-18] MEDS: OXYCODONE IR 10 MG TABLET PO ×2 (03:13→06:16)
--- NOTE | 2020-05-18 03:30 | PC.NURSE ---
Addendum entered by Johanna Arzate R.N. 05/18/20 06:20: States pain is currently 5/10; medicated with Oxycodone but too early to repeat Vistaril. Original Note: Patient has been asleep since start of shift but now awakened for vitals/assessment. Is alert and oriented. Breath sounds CTA with RA sat of 97%. HRR. Denies nausea. BT present and is passing flatus; abdomen is soft. Denies dysuria, frequency or urgency with urination; using bedpan tonight due to pain issues. States pain in left knee is currently 4/10 so medicated with Oxycodone + Vistaril and ice applied. Any movement causes sharp exacerbation of pain. Left leg is noted to be swollen but CMS is intact. DWAYNE dressing intact and covered with marina wrap; CDI. Able to move self in bed. Gait not assessed at this time. Has had SCD's off but now agreeable to having bilateral calf SCD's reapplied. Fall risk score is high and bed alarm is activated.
[2020-05-18] MEDS: LEVOTHYROXINE 25 MCG TABLET PO (06:16)
[2020-05-18 07:40] VITALS: BP 124/57; PULSE 99; RESP 16; TEMP 37.2; O2SAT 95
[2020-05-18] MEDS: MESALAMINE 0.375 GM 2 EACH PO ×2 (09:19→20:53)
[2020-05-18] MEDS: CHOLECALCIFEROL (VITAMIN D3) 5,000 UNIT TABLET 5000 UNIT PO (09:20)
[2020-05-18] MEDS: MULTIVITAMIN 1 TABLET 1 TAB PO (09:20)
[2020-05-18] MEDS: atenoloL 25 MG TABLET PO ×2 (09:23→20:50)
[2020-05-18] MEDS: DOCUSATE 100 MG CAPSULE PO ×2 (09:23→20:50)
[2020-05-18] MEDS: ASPIRIN EC 81 MG TABLET PO ×2 (09:23→20:50)
[2020-05-18] MEDS: OXYCODONE IR 5 MG TABLET 15 MG PO ×5 (09:24→22:18)
[2020-05-18] MEDS: SODIUM CHLORIDE 0.9% FLUSH 10 ML IV ×2 (09:24→20:53)
[2020-05-18] MEDS: ACETAMINOPHEN 325 MG TABLET 650 MG PO ×3 (09:24→20:50)
[2020-05-18] MEDS: estradioL 0.5 MG TABLET PO (09:25)
[2020-05-18] MEDS: hydrOXYzine pamoate 25 MG CAPSULE 50 MG PO ×2 (10:25→17:49)
--- NOTE | 2020-05-18 10:37 | PM.PNPO.1 ---
Subjective Subjective Date Patient Seen: 05/18/20 Time Patient Seen: 07:43 Interval history: Pain 03/21. Denies fever chills. No nausea/ vomiting. Exam Vital Signs (past 8 hours): - 05/18/20 03:00 05/18/20 07:40 Temperature 97.8 F 98.9 F Pulse Rate 84 99 H Respiratory Rate 18 16 Blood Pressure 106/67 124/57 L Pulse Oximetry 97 95 Oxygen Delivery Method Room Air Oxygen Flow Rate 0 Narrative Exam Narrative: 75-year-old female resting comfortably in bed in no apparent distress. Dressing is clean, dry and intact. Tamara dressing on and functioning. Sensation grossly intact to light touch distal left lower extremity. Motor functions intact distally. Both legs are warm and dry. Calf is soft and nontender bilateral. Objective Labs Result Diagrams: 05/17/20 05:24 Assessment & Plan Post-op Postoperative Procedures: Procedures Operation Date: 05/16/20 07:45 Actual Procedures Side Surgeon p Total Knee Arthroplasty Revision Left Mitch Winters MD Postop day 2. Patient progressing as expected. Patient's is home to assist her however is limited. She still requiring 2 person assist. Continue work on pain control, mobilize with physical therapy. Possible discharge to residential facility tomorrow versus home with home health PT.
--- NOTE | 2020-05-18 12:06 | PT.IPTN ---
Current Diagnoses Broken internal joint prosthesis, other site, subsequent encounter (05/16/20) Presence of left artificial knee joint (05/16/20) Surgery Performed Operation Date: 05/16/20 07:45 Actual Procedures p Total Knee Arthroplasty Revision(Left) - Mitch Winters MD Physical Therapy Treatment Note M2 PT-IP Current Condition Start: 05/17/20 12:35 Freq: NEEDED Status: Active Protocol: Document 05/17/20 10:52 AB (Rec: 05/17/20 12:51 AB [id number]) Physical Therapy Current Condition Current Condition Evaluation Date 05/17/20 Treatment Diagnosis s/p L TKA revision; difficulty in walking Onset Date 05/16/20 Weight Bearing Status Weight Bearing Status Weight Bear as Tolerated Allowed Weight Bearing Amount (enter % WBAT LLE or #) (%) M3 PT-IP Subjective Start: 05/17/20 12:35 Freq: NEEDED Status: Active Protocol: Document 05/18/20 11:14 SP (Rec: 05/18/20 14:01 SP [email or web address]) Subjective Physical Therapy Visit Type Type Treatment Note Visit Start Time 11:14 Visit Stop Time 12:06 Total Visit Minutes 52 Notes attended full tx, assisted with LLE support during sitting > supine only for 3rd person assist. Christine attended and provided physical assist during tx needed. Number of JOWL TRIMMER Visits 2 Physical Therapy Visit Comments Patient Comments Pt reported in pain, premedicated but willing with encouragement from JOWL TRIMMER, and nursing to participate in mobility. Therapy Pain Assessment Pain When Pain Assessed At Rest Pain Present Pain Present Pain Reported Location Left Knee Intensity 8 Scale Used Numeric (0 - 10) Description Aching,Burning,Pressure,With Movement Pain Behaviors Facial Grimacing,Guarding, Holding Area,Moaning,Wincing Pain Management Techniques Distraction,Modification of Treatment,Re-positioning, Timing of Activity with Medications M4 PT-IP Mobility and Gait Start: 05/17/20 12:35 Freq: NEEDED Status: Active Protocol: Document 05/18/20 11:14 SP (Rec: 05/18/20 14:01 SP [email or web address]) PT-Bed Mobility Assessment Supine to Sit Supine to Sit Maximum Assistance,2 Person Assistance,Head of Bed Elevated,Bedrails Sit to Supine Sit to Supine Maximum Assistance,1 Person Assistance,2 Person Assistance ,Bedrails Scooting Scooting to Edge of Bed Maximum Assistance Scooting Up and Down in Bed Dependent PT-Transfer Assessment Sit to and From Stand Sit to and from Stand Moderate Assistance,Maximum Assistance,2 Person Assistance ,Use of Upper Extremities Equipment Transfer Assistive Device Gait Belt,Front Wheeled Walker Orthotic/Prosthetic Devices or Brace: No Transfers Transfer Destination Bed Transfer Technique Stand Step Pivot Comments Mobility Comments Pt inclined supine in bed when arrived, reported in alot of pain and just recently premedicated. With much encouragement of 2 PTAs and nursing pt willing to work on AAROM R knee and bed mobility to allow for increased progression in strength. Instruction on LE exercises LLE: quad set, glut set, ankle pumps, heel slides AAROM ( mostly PROM 22 deg - 47 deg of knee flexion ext). AAROM ABD to asssist to EOB during bed mob instructed use of gait belt strap fro self performance and 75% A from JOWL TRIMMER. Pt required Max A of 2 supine approx 50 deg> sitting with support for trunk, LLE, cuing for RLE mobilityi (weak as well), and use of transfer pad to lateral and scoot to EOB. Max A for trunk support sitting balance and BUE WB on bed, very shaky. Once pt was sitting at EOB provided assist for trunk support seated rest Mod A approx 3 min then able to sit unsupported using BUE on bed. Sit<> stand with max cuing for pushing up from bed Max A of 2 and cuign for UE transition on to FWW handles and upright posture/knee extension, decreased to Min A of 2 person. Pt was not tolerating WB through LLE intially but encouraged able to , attempted to SPT to BSC but unsuccessful RLE lateral scoot and required seated rest with Mod A of 2 slow descent to bed with cuing for HP prior . Stood approx 30-45 sec. sit <> stand 2nd trail approx 20 sec stationary using FWW with same cuing and WB, required seated rest due to unsteady BLE, tiring, decreased tolerance and pain. Attempted lateral scoot at EOB, unsuccessful with Max A of 1. sitting>supine Max A of 2: upper body support, LE body support. scoot up in bed Max A of 3 with use of transfer pad and 3rd person supporting LLE . Roll R and L to reposition transfer pad Mod A of 2. Educated importance of allowing L knee straight with pillow support under lower leg for extension ROm as tolerated. Improved extension and comfort before left, donned CP for assist with pain control with pillow case barrier and instructed to take off if feels to cold/ burning sensation with verbal confirmation. Pt had all needs and call light with bed alarm armed before left. in room. Discussed progress in PT today with nursing. Will return in pm for 2nd tx. Gait Assessment Comments Gait Comments Unable due to pain LLE and decreased activity tolerance and strength. Stair Climbing Assessment Comments Stair Climbing Comments Unable due to pain LLE and decreased activity tolerance and strength. Pt will need to assess 7 stairs prior to going home for safe DC. PT-Balance Assessment Sitting Balance and Reactions Static Sitting Balance Ability Poor Dynamic Sitting Balance Ability Poor Standing Balance and Reactions Static Standing Balance Ability Poor Dynamic Standing Balance Ability Poor Device Used FWW M5 PT-IP Objective Assessments Start: 05/17/20 12:35 Freq: NEEDED Status: Active Protocol: Document 05/17/20 10:52 AB (Rec: 05/17/20 12:51 AB [id number]) Orientation Orientation/Cognition Level of Alertness Alert Orientation Name Safety Awareness Decreased Safety Awareness Gross Range of Motion Lower Extremity ROM Assessment Left Impaired Impairments L knee flexion: ~ 30 deg PROM L knee extension: ~ 20 deg less to neutral Strength Lower Extremity Strength Assessment Left Impaired Hip 3+/5 Knee 3-/5 Coordination Assessment Gross Coordination Gross Coordination WNL Muscle Tone Muscle Tone WNL Yes M6 PT-IP Treatment Start: 05/17/20 12:35 Freq: NEEDED Status: Active Protocol: Document 05/18/20 11:14 SP (Rec: 05/18/20 14:01 SP [email or web address]) Physical Therapy Treatment Exercises Exercises Ankle Pumps,Gluteal Sets,Quad Sets,Heel Slides Knee ROM Measurement 22-47 deg Education Education Provided Precautions,Weight Bearing Status,Post-Op Packet,Safety Other Treatments Other Treatment Performed educated pt and spouse regarding equipment needs. M7 PT-IP Assessment and Plan Start: 05/17/20 12:35 Freq: NEEDED Status: Active Protocol: Document 05/18/20 11:14 SP (Rec: 05/18/20 14:01 SP [email or web address]) PT Summary Assessment and Plan Potential Rehabilitation Potential Good Status of Condition at Evaluation Evolving Summary Impairments Pain,ROM,Strength,Balance, Coordination,Sensation,Tone, Cognition,Bed Mobility, Transfers,Gait,Activity Tolerance Progress Towards Goals Slow Progress due to Pain,Slow Progress due to Activity Tolerance Assessment Summary Pt requiring increased physical support this tx with Bed Mob, Sit<>stand Max A of 2 using FWW due to pain. Pt requires dependent assist with LLE in and out of bed and AAROM with exercises. Recommending SNF at this time for discharge but will continue to to assess depend on pt progress and will conduct caregiver training when appropriate but at this time. Further assessment needed. Goals Bed Mobility Goal Standby Assistance Transfer Goal Standby Assistance,Front Wheeled Walker Gait Goal Standby Assistance,Front Wheel Walker Gait Distance 150 Other Goals u/down 7 steps B rails SBA Days to Meet Goals 10 Frequency of Treatment Frequency Of Treatment Twice a Day Treatment Plan Physical Therapy Treatment Plan Bed Mobility Training,Transfer Training,Gait Training, Therapeutic Exercise,Balance Retraining,Post Op Education, Discharge Planning,Hot or Cold Pack,Neuromuscular Re-ed, Coordination Retraining,Manual Therapy Recommendations To Nursing Amount of Assist Needed 2 Person Assist,3 or More Person Assist Discharge Recommendations PT Discharge Recommendations Home with 24/7 Assist,Home Health,SNF Rehab Other Discharge Recommendations depending on progress: SNF vs home with 24/7 and HHPT Transportation Needs at Discharge Private Vehicle,Wheelchair/ Cabulance
[2020-05-18 12:34] VITALS: BP 139/69; PULSE 89; RESP 16; TEMP 37.3; O2SAT 97
--- NOTE | 2020-05-18 13:05 | DI.US.S_ITS ---
PROCEDURE: US PERIPH VENOUS LOW EXTREM LT INDICATIONS: POSTOP. RULE OUT DEEP VEIN THROMBOSIS TECHNIQUE: Real-time imaging, as well as color and pulse Doppler interrogation, were performed of the lower extremity deep veins from the inguinal ligament to the popliteal fossa. COMPARISON: None. FINDINGS: The common femoral, femoral and popliteal veins are normally compressible, and free of intraluminal thrombus. Color and pulse Doppler demonstrate normal phasic intraluminal flow. There is normal augmentation response to distal compression maneuver. IMPRESSION: No DVT found. Dictated by: Kennedy Mattson M.D. on 05/18/2020 at 15:43 Approved by: Kennedy Mattson M.D. on 05/18/2020 at 15:44
--- NOTE | 2020-05-18 13:54 | CM.DPC ---
DCP SNF vs HH Per Ortho PA, pt remains painful and requiring 1-2PA currently and not stable for d/c yet today but possibly tomorrow. SW following for further PT today towards determining SNF vs HH at d/c. ORESTES spoke to Izabela at [facility] and she confirms they can accept at d/c if SNF needed and will just need updated COVID test. Daisy [facility]TERO has HH orders and F2F, just need d/c summary if pt safe for home at discharge. Plan: ORESTES to follow in the morning after further PT today towards determining [facility] vs Home with Daisy [facility]TERO. Riya Kurtz, MATTE CUTTER
--- NOTE | 2020-05-18 16:27 | PT.IPTN ---
Current Diagnoses Broken internal joint prosthesis, other site, subsequent encounter (05/16/20) Presence of left artificial knee joint (05/16/20) Surgery Performed Operation Date: 05/16/20 07:45 Actual Procedures p Total Knee Arthroplasty Revision(Left) - Mitch Winters MD Physical Therapy Treatment Note M2 PT-IP Current Condition Start: 05/17/20 12:35 Freq: NEEDED Status: Active Protocol: Document 05/17/20 10:52 AB (Rec: 05/17/20 12:51 AB [id number]) Physical Therapy Current Condition Current Condition Evaluation Date 05/17/20 Treatment Diagnosis s/p L TKA revision; difficulty in walking Onset Date 05/16/20 Weight Bearing Status Weight Bearing Status Weight Bear as Tolerated Allowed Weight Bearing Amount (enter % WBAT LLE or #) (%) M3 PT-IP Subjective Start: 05/17/20 12:35 Freq: NEEDED Status: Active Protocol: Document 05/18/20 15:31 SP (Rec: 05/18/20 16:56 SP [email or web address]) Subjective Physical Therapy Visit Type Type Treatment Note Visit Start Time 15:31 Visit Stop Time 16:27 Total Visit Minutes 56 Notes attended tx session observation only. Number of RESEARCH SOIL SCIENTIST Visits 3 Physical Therapy Visit Comments Patient Comments Pt agreeable to work with therapy, stated I feel much better, able to get a nap and Dr ordered doppler for LLE swelling and burnign pain. Nursing reported Doppler tentive results neg, able to mobilize during PT. Therapy Pain Assessment Pain When Pain Assessed At Rest Pain Present Pain Present Pain Reported Location Left Knee Intensity 5 Scale Used 5/10 at rest, went up during mobility scale rating not given. Description Aching,Burning,Pressure,With Movement Pain Behaviors Facial Grimacing,Guarding, Holding Area,Moaning,Wincing Pain Management Techniques Distraction,Modification of Treatment,Re-positioning, Timing of Activity with Medications M4 PT-IP Mobility and Gait Start: 05/17/20 12:35 Freq: NEEDED Status: Active Protocol: Document 05/18/20 15:31 SP (Rec: 05/18/20 16:56 SP [email or web address]) PT-Bed Mobility Assessment Supine to Sit Supine to Sit Moderate Assistance,Maximum Assistance,2 Person Assistance ,Head of Bed Elevated Scooting Scooting to Edge of Bed Standby Assistance,Moderate Assistance PT-Transfer Assessment Sit to and From Stand Sit to and from Stand Standby Assistance,Maximum Assistance,2 Person Assistance ,Use of Upper Extremities Equipment Transfer Assistive Device Gait Belt,Front Wheeled Walker Orthotic/Prosthetic Devices or Brace: No Transfers Transfer Destination Chair,Bedside Commode Transfer Technique Stand Step Pivot Transfer Ability Level of Assist Standby Assistance,Maximum Assistance,2 Person Assistance ,Use of Upper Extremities Comments Mobility Comments Pt inclined supine in bed when arrived. Reported decreased in pain level after nap this afternoon, declined pain med pre PT and went up but tolerable. elevated supine> sitting Mod of 1 support at trunk, Max of 1 for patient to pull from therapist arm and support of LLE repositioning and suspended during scoot forward to EOB, cuing for trunk flexion and UE WB positioning improved self from am tx. sitting at EOB use of UE only SBA. Sit <> stand Max A of 1, SBA of 1, wt shift in standing encouraging LLE WB to allow RLe repositioning for step lateral scoot RLE, min A at times for FWW repositioning bed >BSC and BSC to chair 90 deg angle. Standing >sitting Mod A of 2 with verbal and contact cuing for RUE transition to/from FWW and slow descent. Pt was reclined in chair with call light and all needs in reach in room, CP freshened and applied to anterior/posterior L knee with pillow case for barrier and instructed to remove if to cold but to assist with pain control. RESEARCH SOIL SCIENTIST discussed progress in tx with nursing and reported patient's request for pain meds. Gait Assessment Comments Gait Comments Pt able to put little more weight through LLE during SPT, therapist provided suport at anterior L knee to prevent buclkling during RLE repositioning. Stair Climbing Assessment Comments Stair Climbing Comments Unable due to pain LLE and decreased activity tolerance and strength. Pt will need to assess 7 stairs prior to going home for safe DC. PT-Balance Assessment Sitting Balance and Reactions Static Sitting Balance Ability Fair Dynamic Sitting Balance Ability Fair Standing Balance and Reactions Static Standing Balance Ability Poor Dynamic Standing Balance Ability Poor Device Used FWW M5 PT-IP Objective Assessments Start: 05/17/20 12:35 Freq: NEEDED Status: Active Protocol: Document 05/17/20 10:52 AB (Rec: 05/17/20 12:51 AB [id number]) Orientation Orientation/Cognition Level of Alertness Alert Orientation Name Safety Awareness Decreased Safety Awareness Gross Range of Motion Lower Extremity ROM Assessment Left Impaired Impairments L knee flexion: ~ 30 deg PROM L knee extension: ~ 20 deg less to neutral Strength Lower Extremity Strength Assessment Left Impaired Hip 3+/5 Knee 3-/5 Coordination Assessment Gross Coordination Gross Coordination WNL Muscle Tone Muscle Tone WNL Yes M6 PT-IP Treatment Start: 05/17/20 12:35 Freq: NEEDED Status: Active Protocol: Document 05/18/20 15:31 SP (Rec: 05/18/20 16:56 SP [email or web address]) Physical Therapy Treatment Exercises Exercises Ankle Pumps,Gluteal Sets,Quad Sets,Heel Slides Knee ROM Measurement did not measure this tx. Education Education Provided Precautions,Weight Bearing Status,Safety M7 PT-IP Assessment and Plan Start: 05/17/20 12:35 Freq: NEEDED Status: Active Protocol: Document 05/18/20 15:31 SP (Rec: 05/18/20 16:56 SP [email or web address]) PT Summary Assessment and Plan Potential Rehabilitation Potential Good Status of Condition at Evaluation Evolving Summary Impairments Pain,ROM,Strength,Balance, Coordination,Sensation,Tone, Cognition,Bed Mobility, Transfers,Gait,Activity Tolerance Progress Towards Goals Slow Progress due to Pain,Slow Progress due to Activity Tolerance Assessment Summary Pt requiring less of 2nd person physical support this tx with Bed Mob, Sit<>stand Max A of 1 SBA of 1 using FWW. Pt requires max assist with LLE in and out of bed and AAROM with exercises. Continue recommending SNF at this time upon discharge but will continue to to assess depend on pt progress and will conduct caregiver training when appropriate but at this time possibly tomorrow if improves, patient and aware, needs to perform stairs as well to return home, unable at this time. Further assessment needed. Goals Bed Mobility Goal Standby Assistance Transfer Goal Standby Assistance,Front Wheeled Walker Gait Goal Standby Assistance,Front Wheel Walker Gait Distance 150 Other Goals u/down 7 steps B rails SBA Days to Meet Goals 10 Frequency of Treatment Frequency Of Treatment Twice a Day Treatment Plan Physical Therapy Treatment Plan Bed Mobility Training,Transfer Training,Gait Training, Therapeutic Exercise,Balance Retraining,Post Op Education, Discharge Planning,Hot or Cold Pack,Neuromuscular Re-ed, Coordination Retraining,Manual Therapy Recommendations To Nursing Amount of Assist Needed 2 Person Assist Discharge Recommendations Other Discharge Recommendations depending on progress: SNF vs home with 04/03 and PT Transportation Needs at Discharge Private Vehicle,Wheelchair/ Cabulance
[2020-05-18 16:31] VITALS: BP 113/63; PULSE 95; RESP 20; TEMP 36.8; O2SAT 95
[2020-05-18] MEDS: GABAPENTIN 300 MG CAPSULE PO (16:35)
[2020-05-18] MEDS: LORazepam 0.5 MG TABLET 0.25 MG PO (19:34)
[2020-05-18 20:11] VITALS: BP 129/64; PULSE 93; RESP 16; TEMP 36.6; O2SAT 97
[2020-05-18] MEDS: ROSUVASTATIN 10 MG TABLET PO (20:50)
[2020-05-18] MEDS: TIZANIDINE 4 MG TABLET PO (20:50)
[2020-05-18 20:54] VITALS: PULSE 85; RESP 18; O2SAT 97
[2020-05-19] VITALS: O2SAT 88
[2020-05-19 00:16] VITALS: BP 99/57; PULSE 98; RESP 12; TEMP 36.6; O2SAT 98
[2020-05-19] MEDS: OXYCODONE IR 5 MG TABLET 15 MG PO ×5 (01:27→14:35)
--- NOTE | 2020-05-19 01:54 | PC.NURSE ---
Addendum entered by Johanna Arzate R.N. 05/19/20 06:35: Oxygen stopped and RA sat is now 91% Addendum entered by Johanna Arzate R.N. 05/19/20 06:21: Patient was medicated earlier with Oxycodone for pain and had a difficult time holding onto glass of water and getting straw to her mouth. Now seems slightly more awake but still having coordination difficulty and states she still feels groggy. Patient decided to decline use of Vistaril at this time but is aware she can still take it later should she change her mind. Original Note: 0008 Patient sedated but did arouse to voice but falls asleep mid sentence and speech is mumbled/slurred; scheduled Vistaril not given due to sedation and patient agreeable stating pain is minimal at this time. Breath sounds CTA but RA sat is 88% and noted to have shallow respirations and is mouth breathing; oxygen applied at 1L/min with resulting sat of 97%. Placed on continuous oximetry to monitor overnight. HRR but BP low at 99/57. BT present and is passing flatus but has not had a BM since 05/15. Has been voiding using bedpan; denies dysuria, frequency or urgency. Is able to move herself in bed. Gait not assessed as not out of bed. DWAYNE dressing to left knee intact with 2 small spots of sanguinous drainage. Left leg is swollen. CMS intact but has difficulty lifting leg off bed. Agreeable to having bilateral calf SCD's put on. Fall risk score is high and bed alarm is activated. At 0127 patient was again awakened as pain medication available to be taken. Remains sleepy but states she did want to take the po Oxycodone to stay on top of the pain. States pain at this time was only 2/10.
[2020-05-19 06:00] VITALS: BP 103/56; PULSE 91; RESP 18; TEMP 36.8; O2SAT 97
[2020-05-19] MEDS: LEVOTHYROXINE 25 MCG TABLET PO (06:18)
[2020-05-19] MEDS: atenoloL 25 MG TABLET PO (08:37)
[2020-05-19] MEDS: estradioL 0.5 MG TABLET PO (08:37)
[2020-05-19] MEDS: MESALAMINE 0.375 GM 2 EACH PO (08:37)
[2020-05-19] MEDS: ACETAMINOPHEN 325 MG TABLET 650 MG PO ×2 (08:37→14:35)
[2020-05-19] MEDS: ASPIRIN EC 81 MG TABLET PO (08:37)
[2020-05-19] MEDS: MULTIVITAMIN 1 TABLET 1 TAB PO (08:37)
[2020-05-19] MEDS: DOCUSATE 100 MG CAPSULE PO (08:37)
[2020-05-19] MEDS: SODIUM CHLORIDE 0.9% FLUSH 10 ML IV (08:38)
[2020-05-19] MEDS: CHOLECALCIFEROL (VITAMIN D3) 5,000 UNIT TABLET 5000 UNIT PO (08:39)
[2020-05-19 09:00] VITALS: BP 115/56; PULSE 100; RESP 16; TEMP 36.9; O2SAT 95
--- NOTE | 2020-05-19 10:26 | PC.NURSE ---
Pt up to bsc to void and then chair with max assist.
--- NOTE | 2020-05-19 11:19 | CM.DPC ---
Addendum entered by Yamilka Andersen LPN 05/19/20 14:57: Izabela called to check on pt's home medication: Arpiso. Pt brought it into the hospital for use here and will bring it to the [facility]. NEO Benoit confirms that pt and her are aware of same. Addendum entered by Yamilka Andersen LPN 05/19/20 13:19: PAUL Frazier is here and has finalized the dc orders. Pt remains agreeable to plan for 1500 today. COVID test: returned -. PASRR/reviewed and process accordingly. All snf order paperwork has been faxed to [facility]. Pt has requested a regular diet at the facility as she uses gluten free as a choice but not a necessity and said she prefers to just pick what she wishes from a regular diet. Orders reflect same. Original Note: DCP: continued: Case received, EMR reviewed and met with pt and her in followup to the d/c plan. Pt confirms that since d/c is planned for today snf at [facility] is what she needs to do. She is waiting for PAUL Frazier to see her and confirm this as well as to give the snf orders. COVID retest is needed. RN Coordinator Yamileth is updated and states an order will be obtained. [facility] is aware the the orders are still pending but a tentative plan for w/c van transport is set up now for 1500. PASRR: will review and fax to [facility]. P: SVCR today, pending above specifics: 1500
[2020-05-19 12:05] VITALS: BP 113/56; PULSE 83; RESP 18; TEMP 37.4; O2SAT 100
--- NOTE | 2020-05-19 12:30 | PT-IP ANOTE ---
checked on pt and pt refused PT with c/o 7/10 pain but agreed for PT to come in the afternoon.
[2020-05-19 12:31] LABS: COVID19 -Nasal RAPID Negative (Negative)
--- NOTE | 2020-05-19 12:48 | PM.DS.1 ---
History of Present Illness History of Present Illness Date Patient Seen: 05/19/20 Time Patient Seen: 12:48 Chief complaint: INPT Narrative: Pain mostly moderate occasional severe. Denies fever chills. No nausea vomiting. Her is home to assist her however he is is limited himself. Discharge Providers Provider Date of admission: 05/16/20 06:16 Discharge Date: 05/19/20 Primary care physician: Afshan Ferguson MD Consults: 05/16/20 06:00 Consult to Anesthesiology Routine Comment: Consulting Provider: Anesthesiologist Reason for consultation: Regional block for post operative pain control 05/16/20 15:24 Consult to Discharge Planning Routine Comment: Consult to Physical Therapy Evaluate & Treat Comment: Physician Instructions: postop TKA protocol Consult to Respiratory Therapy Evaluate & Treat Comment: Physician Instructions: Evaluate and treat Discharge provider: Serjio Frazier PA-C Summary Hospital Course Discharge Diagnosis: Pre-op diagnosis: 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 Hospital Course: Procedure: revision L TKA Same procedure as scheduled: Yes Indications: loosening of tibial baseplate with pain Surgeon: Mitch Winters Neurosurgery Research Director: Navid Carrizales Anesthesia Type: General Operative Notes Findings: tibial base plate loosening, no gross sign of infection Closure Type: non-primary Specimen(s): other (2x cultures ) Prosthetic devices, grafts, tissues, transplants, or devices: Benson Nephew size 4 legion femur 13 mm x 160 mm legion Press-Fit stem 2x 5 mm distal augments 4 mm legion offset drawing in machine tender helper Size 4 left legion revision tibial base plate 11 mm x 160 mm legion Press-Fit stem 6 mm legion offset drawing in machine tender helper Size 3-4 15 mm kay 2 constrained articular insert Estimated Blood Loss (mL): 200 Blood products transfused: none Tourniquet time (min): 100 Patient admitted to the hospital for the above-mentioned procedure. Patient consented to the same. Patient taken to the operating room and back in her room recovering well as in bed in stable condition. Patient has had some difficulty with pain control. Pain control has improved. She continues to be 2 person max assist. Patient will be discharged to longterm facility today. Status at Discharge Cognitive/behavioral status at discharge: at baseline, oriented Functional status at discharge: uses cane/walker Overall status at discharge: patient is progressing back to baseline Time Spent with Patient Time spent: Less than 30 minutes Exam Vital Signs (past 8 hours): - 05/19/20 06:00 05/19/20 09:00 05/19/20 12:05 Temperature 98.2 F 98.4 F 99.4 F Pulse Rate 91 H 100 H 83 Respiratory Rate 18 16 18 Blood Pressure 103/56 L 115/56 L 113/56 L Pulse Oximetry 97 95 100 Oxygen Delivery Method Nasal Cannula Oxygen Flow Rate 0 Objective Labs Result Diagrams: 05/17/20 05:24 Labs: Laboratory Results - last 24 hr 05/19/20 12:19 COVID-19 PCR Negative Discharge Plan Discharge Plan Patient Disposition: SNF Transfer to: [facility] Consult as needed: Dental, Mental health, Podiatry and Vision Discharge orders & Medications Prescriptions: New acetaminophen 325 mg Tablet 650 mg PO TID Qty: 60 RF: 0 aspirin 81 mg Tablet,Delayed Release (Dr/Ec) 81 mg PO BID Qty: 60 RF: 0 ondansetron 4 mg Tablet,Disintegrating 4 mg PO Q4HR PRN (Reason: Nausea) Qty: 20 RF: 0 oxycodone 5 mg Tablet 10 mg PO Q3HR PRN (Reason: Pain, Severe (7-10)) Qty: 60 RF: 0 hydroxyzine pamoate 25 mg Capsule 50 mg PO Q6HR Qty: 30 RF: 0 Continued atenolol 25 MG tablet 25 mg PO BID Qty: 0 RF: 0 estradiol [Estrace] 1 MG tablet 0.5 mg PO QDAY Qty: 0 RF: 0 levothyroxine 50 mcg Tablet 25 mcg PO DAILY Qty: 0 RF: 0 albuterol sulfate [Ventolin HFA] 90 MCG/PUFF HFA aerosol inhaler 2 puff INH PRN PRN (Reason: Shortness Of Breath) Qty: 0 RF: 0 cholecalciferol (vitamin D3) [Vitamin D3] 125 mcg (5,000 unit) Tablet 125 mcg PO DAILY Qty: 0 RF: 0 multivitamin Capsule 1 cap PO DAILY Qty: 0 RF: 0 tizanidine 4 MG tablet 4 mg PO HS Qty: 0 RF: 0 gabapentin [Neurontin] 300 MG capsule 300 mg PO QPM Qty: 0 RF: 0 docusate sodium 100 mg Capsule 200 mg PO BEDTIME RF: 0 melatonin 10 mg Tablet 10 mg PO BEDTIME RF: 0 rosuvastatin 10 mg Tablet 10 mg PO BEDTIME RF: 0 mesalamine [Apriso] 0.375 gram Capsule,Extended Release 24hr 0.375 g PO BID RF: 0 Follow up/Referrals: Afshan Ferguson MD [Primary Care Provider] - Mitch Winters MD [Physician] - (SNO 2 wks post op) Discharge Health Status Multidrug resistant organism: No MDRO Diet/Activity/Treatments Diet: Diet as Tolerated Liquid consistency: Normal/Thin Food texture: Regular Activity: WBAT LLE Cold/Heat Therapy: ice as needed Other treatments: ASA 81 mg bid x 6 wks Skin/Wound/Dressing Care Report to your healthcare provider any signs of infection, such as:: chills, fever, increased pain, unusual drainage and unusual redness Dressing: keep clean and dry [facility] Reason for rehabilitation: Post-operative therapy Rehab type: Physical therapy Visit Report/Discharge Packet Instructions: DI for Knee Replacement, DI for Prescription Opioid Use Stand Alone Forms: Surgery Discharge Discharge Data Primary Care Provider: Afshan Ferguson
--- NOTE | 2020-05-19 14:38 | PT-IP ANOTE ---
Attempted to see pt @14:38, pt refused therapy d/t pain and upcoming transfer to rehab at 15:00. Pt had no further questions regarding PT.
--- NOTE | 2020-05-19 14:47 | PC.NURSE ---
Called report to Afshan LARSON at [facility] and gave all needed information. Afshan denies further questions and will be ready to receive Pt when transferred via w/c to facility.
--- NOTE | 2020-05-19 15:32 | PC.NURSE ---
Pt out via w/c by [employer] personnel with all belongings.
== END 2020-05-19 15:33 | DRG 467 ==
PROVIDERS: Admitting Provider Orthopaedic Surgery Adult Reconstructive Orthopaedic Surgery; PCP Student in an Organized Health Care Education/Training Program; Referring Provider Student in an Organized Health Care Education/Training Program; Visit Provider Orthopaedic Surgery Adult Reconstructive Orthopaedic Surgery
PROC: 0SPD0JZ Removal of Synthetic Substitute from Left Knee Joint, Open Approach (ICD-10-PCS; principal; 2020-05-16 07:45)
DX: T84.033A Mechanical loosening of internal left knee prosthetic joint, initial encounter (principal); K51.90 Ulcerative colitis, unspecified, without complications; I10 Essential (primary) hypertension; E78.5 Hyperlipidemia, unspecified; E03.9 Hypothyroidism, unspecified; Z11.59 Encounter for screening for other viral diseases
CPT/HCPCS: 36415; 73560; 85014; 85018; 85610; 87070; 87075; 87205; 87635; 93971; 97110; 97116; 97162; 97530; C1776; A9270; J0690; J1100; J1885; J2175; J2250; J2270; J2274; J2405; J2704; J3010

== ENCOUNTER → 2020-05-27 10:34 | Outpatient (ROUT) | payer SELFPAY ==
[2020-05-16 15:35] VITALS: BMI 24.0
[2020-05-27 10:37] LABS: RBC Urine None Seen (0-5/HPF)
[2020-05-27 10:46] LABS: Appearance Urine UA CLEAR; Bilirubin Urine UA NEGATIVE (NEGATIVE); Color Urine UA YELLOW; Glucose Urine UA NEGATIVE (Negative); Ketones Urine UA 1+ (NEGATIVE); Leukocyte Esterase Urine UA NEGATIVE (NEGATIVE); Nitrite Urine UA NEGATIVE (Negative); Occult Blood Urine UA NEGATIVE (Negative); Protein Urine UA TRACE (Negative); Specific Gravity Urine UA >=1.030 (1.000-1.035); Urobilinogen Urine UA 0.2 E.U./dL (0.2)
[2020-05-27 11:01] LABS: WBC Urine 0-1/HPF (0-5/HPF)
[2020-05-27 11:02] LABS: Amorphous Sediment Urine 2+; Bacteria Urine Many (>30); Culture Indicated Urine Cult Not Indicated; Mucus Urine 2+ (Negative); Squamous Epithelial Cell Urine 5-10 /HPF (0-5/HPF)
== END ==
PROVIDERS: PCP Student in an Organized Health Care Education/Training Program; Visit Provider Internal Medicine
DX: R25.1 Tremor, unspecified (principal); R41.82 Altered mental status, unspecified
CPT/HCPCS: 81001

== ENCOUNTER → 2020-06-04 20:03 | Outpatient (ROUT) | payer SELFPAY ==
[2020-05-16 15:35] VITALS: BMI 24.0
[2020-06-04 20:19] LABS: Appearance Urine UA CLEAR; Bilirubin Urine UA NEGATIVE (NEGATIVE); Color Urine UA YELLOW; Glucose Urine UA NEGATIVE (Negative); Ketones Urine UA NEGATIVE (NEGATIVE); Leukocyte Esterase Urine UA NEGATIVE (NEGATIVE); Nitrite Urine UA NEGATIVE (Negative); Occult Blood Urine UA NEGATIVE (Negative); Protein Urine UA NEGATIVE (Negative); Specific Gravity Urine UA 1.015 (1.000-1.035); Urobilinogen Urine UA 0.2 E.U./dL (0.2)
[2020-06-04 20:20] LABS: pH Urine UA 6.5 (4.5-8.0)
[2020-06-04 20:31] LABS: Bacteria Urine Few (2-10); Culture Indicated Urine Cult Not Indicated; RBC Urine 0-1/HPF (0-5/HPF); Squamous Epithelial Cell Urine 5-10 /HPF (0-5/HPF); WBC Urine 0-1/HPF (0-5/HPF)
== END ==
PROVIDERS: PCP Student in an Organized Health Care Education/Training Program; Visit Provider Internal Medicine
DX: R82.90 Unspecified abnormal findings in urine (principal)
CPT/HCPCS: 81001

== ENCOUNTER → 2020-09-14 13:10 | Outpatient (CLI) | payer MEDICARE, OTHER, SELFPAY ==
[2020-05-16 15:35] VITALS: BMI 24.0
[2020-09-14] MEDS: COVID-19 VACC #1, MRNA(MOD) 100 MCG/0.5 ML VIAL IM (13:16)
== END ==
PROVIDERS: PCP Student in an Organized Health Care Education/Training Program; Visit Provider Internal Medicine
DX: Z23 Encounter for immunization (principal)
CPT/HCPCS: 0011A; 91301

== ENCOUNTER → 2020-10-04 09:39 | Outpatient (CLI) | payer MEDICARE, OTHER, SELFPAY ==
[2020-05-16 15:35] VITALS: BMI 24.0
[2020-10-04 10:12] LABS: Add Manual Diff / Slide Review NO; Basophils Absolute Auto 100 /uL (0-100); Eosinophils Absolute Auto 200 /uL (0-450); Eosinophils Percent Auto 4.1 % (2-4); Hematocrit 43.5 % (36-46); Hemoglobin 14.4 g/dL (12.0-16.0); Lymphocytes Absolute Auto 1400 /uL (1100-4500); Lymphocytes Percent Auto 23.3 % (25-40); Mean Corpuscular HGB Conc 33.2 % (30-36); Mean Corpuscular Hemoglobin 29.7 PG (26-34); Mean Corpuscular Volume 89.5 fL (80-100); Monocytes Absolute Auto 700 /uL (0-900); Monocytes Percent Auto 12.5 % (3-14); Neutrophils Absolute Auto 3500 /uL (1500-7000); Neutrophils Percent Auto 58.1 % (50-75); Platelet Count 223 X10^3/uL (150-400); Red Blood Cell Count 4.86 X10^6/uL (4.0-5.2); Red Cell Distribution Width 14.4 % (11.6-14.8)
[2020-10-04 10:19] LABS: Alanine Aminotransferase 37 IU/L (<35); Albumin 4.2 g/dL (3.5-5.0); Albumin Globulin Ratio 1.4 (1.0-2.8); Alkaline Phosphatase 64 U/L (38-126); Aspartate Aminotransferase 47 IU/L (14-36); BUN Creatinine Ratio 28.6 (6-22); Bilirubin Total 0.6 mg/dL (0.2-1.3); Blood Urea Nitrogen 16 mg/dL (7-17); Calcium 9.6 mg/dL (8.4-10.2); Carbon Dioxide 32 mmol/L (22-32); Chloride 105 mmol/L (98-107); Cholesterol 194 mg/dL (140-199); Estimated Glomerular Filt Rate > 60.0 mL/min (>60); Globulin 3.1 g/dL (1.7-4.1); Glucose 91 mg/dL (80-110); HDL Cholesterol 81 mg/dL (40-60); HEMOLYSIS < 15 (0-50); LDL Cholesterol Calculated 99 mg/dL (<100); Sodium 138 mmol/L (137-145); Total Protein 7.3 g/dL (6.3-8.2); Triglycerides 68 mg/dL (35-150)
[2020-10-04 11:00] LABS: TSH w/ Reflex to FT4 2.26 uIU/mL (0.47-4.68)
[2020-10-05 19:50] LABS: Vitamin D 25 Hydroxy (D3) 60.2 ng/mL (30.0-100.0)
== END ==
PROVIDERS: PCP Physician Assistant; Referring Provider Physician Assistant; Visit Provider Physician Assistant
DX: E03.9 Hypothyroidism, unspecified (principal); E55.9 Vitamin D deficiency, unspecified; E78.00 Pure hypercholesterolemia, unspecified
CPT/HCPCS: 36415; 80053; 80061; 82306; 84443; 85025

== ENCOUNTER → 2020-10-13 13:03 | Outpatient (CLI) | payer MEDICARE, OTHER, SELFPAY ==
[2020-05-16 15:35] VITALS: BMI 24.0
[2020-10-13] MEDS: COVID-19 VACC #2, MRNA(MOD) 100 MCG/0.5 ML VIAL IM (13:08)
== END ==
PROVIDERS: PCP Physician Assistant; Visit Provider Internal Medicine
DX: Z23 Encounter for immunization (principal)
CPT/HCPCS: 0012A; 91301

== ENCOUNTER → 2020-10-17 07:58 | Outpatient (CLI) | payer MEDICARE, OTHER, SELFPAY ==
[2020-05-16 15:35] VITALS: BMI 24.0
--- NOTE | 2020-10-17 | DI.US.S_ITS ---
PROCEDURE: US ABDOMEN LIMITED INDICATIONS: LIVER FUNCTION TECHNIQUE: Real-time scanning was performed of the abdominal and retroperitoneal organs, with image documentation. COMPARISON: None. FINDINGS: Liver: Liver is normal in size and homogeneous in echotexture. Gallbladder: There is prior cholecystectomy. Biliary ducts: Intrahepatic bile ducts are non-dilated. Extrahepatic bile duct caliber measures 5.9 mm. Normal is 6-7 mm or less in diameter, or 10 mm or less post-cholecystectomy. Pancreas: Visualized portion of pancreas shows a fairly homogeneously hypoechoic area involving pancreatic head and measures approximately 3.6 x 1.2 x 1 cm in size. No internal vascularity is seen. IVC: IVC is slightly prominent in size and measures 2.1 cm in diameter. Miscellaneous: No free abdominal fluid. IMPRESSION: 1. No discrete hepatic lesion. No biliary ductal dilatation. Gallbladder is surgically absent. 2. Subtle hypoechoic and solid appearing lesion involving pancreatic head measures 3.6 x 1.2 x 1 cm in size without internal vascularity. Consider MRI of abdomen without and with contrast for further evaluation of this region. Dictated by: Nawaf Hurtado M.D. on 10/17/2020 at 10:04 Approved by: Nawaf Hurtado M.D. on 10/17/2020 at 10:07
[2020-10-18 00:36] LABS: HBsAg Screen Negative (Negative); Hepatitis A Antibody IgM Negative (Negative); Hepatitis B Core Antibody IgM Negative (Negative); Hepatitis C Antibody <0.1 s/co ratio (0.0-0.9)
== END ==
PROVIDERS: PCP Physician Assistant; Referring Provider Physician Assistant; Visit Provider Physician Assistant
DX: R94.5 Abnormal results of liver function studies (principal); K86.9 Disease of pancreas, unspecified; Z90.49 Acquired absence of other specified parts of digestive tract
CPT/HCPCS: 36415; 76705; 80074

== ENCOUNTER → 2020-10-26 14:02 | Outpatient (CLI) | payer MEDICARE, OTHER, SELFPAY ==
[2020-05-16 15:35] VITALS: BMI 24.0
--- NOTE | 2020-10-26 14:05 | DI.MRI.S_ITS ---
PROCEDURE: MR ABDOMEN WO/W CON INDICATIONS: Disease of pancreas, unspecified TECHNIQUE: Coronal HASTE, axial 2D FLASH in- and [id number]; axial breath-hold T2 FSE with fat saturation from the hepatic dome to the iliac crests. Oblique coronal thin-slice and radial thick slab HASTE through the biliary system. Dynamic axial VIBE during administration of contrast. Post-contrast coronal VIBE or 2D FLASH with fat saturation from the hepatic dome to the iliac crests. Optional diffusion weighted imaging and ADC may be performed. COMPARISON: [facility], , US ABDOMEN LIMITED, 10/17/2020, 8:31. FINDINGS: Image quality: Excellent. Pancreas and biliary system: No pancreatic mass or cystic lesion. No suspicious enhancement or restricted diffusion. No pancreatic ductal dilatation. No peripancreatic fluid collection. Mildly prominent extrahepatic bile ducts at the hepatic hilum. This may be due to post cholecystectomy status. The CBD is not dilated and tapers distally. Solid organs: Liver is normal in size and enhancement. No focal lesion. Gallbladder is surgically absent. Spleen is normal in size and enhancement. No adrenal nodules. Kidneys are normal in size and enhancement, without hydronephrosis. Left peripelvic cysts. No suspicious enhancement. Nodes and vessels: No retroperitoneal or mesenteric adenopathy by size criteria. Aorta and inferior vena cava are normal in size. Bowel and peritoneum: Unenhanced bowel loops are normal in caliber throughout. No free fluid. Lung bases: No basal pleural effusions. Heart size is normal. Bones and soft tissues: No ventral hernias. Bone marrow is normal in overall signal. Minimal scoliosis. IMPRESSION: 1. No pancreatic mass or cystic lesion. 2. No pancreatic or significant biliary ductal dilatation in this post cholecystectomy patient. 3. No free fluid. 4. No adenopathy. Dictated by: Rubio Yoder M.D. on 10/26/2020 at 15:15 Approved by: Rubio Yoder M.D. on 10/26/2020 at 15:28
== END ==
PROVIDERS: PCP Physician Assistant; Referring Provider Physician Assistant; Visit Provider Physician Assistant
DX: K86.9 Disease of pancreas, unspecified (principal)
CPT/HCPCS: 74183; A9579

== ENCOUNTER → 2020-11-14 08:54 | Outpatient (CLI) | payer MEDICARE, OTHER, SELFPAY ==
[2020-05-16 15:35] VITALS: BMI 24.0
[2020-11-14 09:40] LABS: Add Manual Diff / Slide Review NO; Basophils Absolute Auto 100 /uL (0-100); Basophils Percent Auto 1.4 % (0-2); Eosinophils Absolute Auto 200 /uL (0-450); Eosinophils Percent Auto 5.3 % (2-4); Lymphocytes Absolute Auto 1500 /uL (1100-4500); Lymphocytes Percent Auto 31.5 % (25-40); Mean Corpuscular HGB Conc 33.3 % (30-36); Mean Corpuscular Hemoglobin 30.3 PG (26-34); Mean Corpuscular Volume 90.9 fL (80-100); Monocytes Absolute Auto 800 /uL (0-900); Monocytes Percent Auto 16.7 % (3-14); Neutrophils Absolute Auto 2100 /uL (1500-7000); Neutrophils Percent Auto 45.1 % (50-75); Platelet Count 221 X10^3/uL (150-400); Red Blood Cell Count 4.62 X10^6/uL (4.0-5.2); Red Cell Distribution Width 13.9 % (11.6-14.8); White Blood Cell Count 4.6 X10^3/uL (4.5-11.0)
[2020-11-14 09:49] LABS: Hemoglobin A1C% w Est Avg Glu 5.2 % (4.0-6.0)
== END ==
PROVIDERS: PCP Physician Assistant; Referring Provider Orthopaedic Surgery Adult Reconstructive Orthopaedic Surgery; Visit Provider Orthopaedic Surgery Adult Reconstructive Orthopaedic Surgery
DX: M25.561 Pain in right knee (principal); R73.9 Hyperglycemia, unspecified
CPT/HCPCS: 36415; 83036; 85025

== ENCOUNTER → 2020-11-21 09:12 | Outpatient (CLI) | payer MEDICARE, OTHER, SELFPAY ==
[2020-05-16 15:35] VITALS: BMI 24.0
[2020-11-21 14:00] LABS: COVID19 -Nasal RAPID Negative (Negative)
== END ==
PROVIDERS: PCP Physician Assistant; Visit Provider Physician Assistant
DX: Z20.822 Contact with and (suspected) exposure to COVID-19 (principal)
CPT/HCPCS: 87635

== ENCOUNTER 2020-11-23 06:20 | Inpatient (IN) | payer MEDICARE, OTHER, SELFPAY ==
[2020-05-16 15:35] VITALS: BMI 24.0
[2020-11-23] VITALS (21 sets, daily range): BP systolic 112–151; BP diastolic 49–89; PULSE 70–94; RESP 10–20; TEMP 35.6–37.2; O2SAT 89–100; BMI 24.4
[2020-11-23] MEDS: ACETAMINOPHEN 325 MG TABLET 975 MG PO (07:04)
[2020-11-23] MEDS: LACTATED RINGERS 1,000 ML 42 ML IV ×3 (07:06→11:07)
--- NOTE | 2020-11-23 07:24 | PM.PREOP ---
Pre-operative Note COVID-19 COVID-19 status: Negative Result date/Date tested (Pos, Neg/Pending): 11/21/20 Interval Note History & Physical reviewed/Exam performed by Physician: Yes Changes to H&P: No H&P completed within 30 days and has changed as indicated here:: Plan for left knee open lysis of adhesions and poly swap for arthrofibrosis
[2020-11-23] MEDS: GABAPENTIN 600 MG TABLET PO ×2 (07:34→20:59)
[2020-11-23] MEDS: CEFAZOLIN 2 GM/100 ML FROZ.PIGGY IV ×3 (07:50→23:59)
--- NOTE | 2020-11-23 08:00 | DI.RAD.S_ITS ---
PROCEDURE: XR KNEE LT 1TO2V INDICATIONS: LEFT TOTAL REVISION TECHNIQUE: 2 view(s) of the knee acquired. COMPARISON: [facility], CR, XR KNEE LT 1TO2V, 05/16/2020, 12:11. FINDINGS: Bones: Patient is status post knee joint arthroplasty. Hardware components are in expected positions. Visualized bony structures are intact. Soft tissues: Overlying postoperative changes are noted. IMPRESSION: Expected appearance following knee arthroplasty. Dictated by: Randee North M.D. on 11/23/2020 at 16:43 Approved by: Randee North M.D. on 11/23/2020 at 16:44
[2020-11-23] MEDS: TRANEXAMIC ACID 1,000 MG in SODIUM CHLORIDE 0.9% 100 ML 400 ML IV ×2 (08:10→09:27)
--- NOTE | 2020-11-23 08:16 | SUR.OPER ---
Supine on padded OR bed, head on pillow, arms secured on padded arm boards at <90 degrees abduction, left leg is flexed at [address] Winters knee positioner, padded foam brace at left thigh, folded bath blanket under heel of operative leg, safety belt at pelvis, tape over blanket over right lower leg.
--- NOTE | 2020-11-23 08:20 | PM.PROC.1 ---
Procedures Date/Time Date of procedure: 11/23/20 Time of procedure: 07:40 Nerve Block Time out performed: Yes Local anesthetic used: lidocaine 2% (5mL, 15mL ropivacaine 0.5%) Location of anesthetic used: adductor canal Amount of anesthesia used (mL): 20 Nerve blocks: femoral (adductor canal) Procedure successful: Yes Patient tolerated procedure: well Complications: none Additional comments: Adductor canal block for post operative pain management. R/B discussed. Site marked. Consent verified/signed. Standard ASA monitors. NC O2. Chloroprep. Sterile technique. Femoral A/V/N identified medial mid thigh with US. Lidocaine skin wheal. 100mm x 21g Pajunk needle advanced with in-plane US guidance. Negative aspiration. LA injected medial and lateral to femoral artery. Negative aspiration throughout. No pain, no paresthesia with injection. VSS. Tolerated well. To OR.
[2020-11-23] MEDS: ROPIVACAINE 0.5% PF 5 MG/ML 20ML VIAL 10 ML INJ (08:34)
[2020-11-23] MEDS: MORPHINE 4 MG/ML INJ IM (08:36)
[2020-11-23] MEDS: KETOROLAC 30 MG/ML VIAL IM (08:37)
--- NOTE | 2020-11-23 09:58 | PM.OP.1 ---
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 Her postoperative course was complicated by pain as well as discharge to a halfway facility drink opened which required 10 days of quarantine. She subsequently developed arthrofibrosis. She has pain and a stiff knee. Surgeon: Mitch Winters Automatic Profile Sander Operator: Serjio Frazier Anesthesia Type: General and Spinal Operative Notes Findings: Copious scar formation with adherence of the extensor mechanism to the anterior femur. Closure Type: primary Specimen(s): none sent Prosthetic devices, grafts, tissues, transplants, or devices: Benson and nephew size 3-413 mm thick legion high flexion polyethylene Estimated Blood Loss (mL): 400 Procedure in detail: Patient was met in the preoperative holding area where the site and side of surgery were marked by . Informed consent had been reviewed and signed in clinic but was also reviewed the preoperative holding area. All last minute questions were answered. Patient was then administered an adductor canal block for postop pain control. Patient was then brought back in the operating room where she received a spinal anesthetic. She was then placed supine on the operating room table and induced under general anesthesia. A nonsterile tourniquet was placed on left thigh and left lower extremity was then prepped and draped in normal sterile fashion. A surgical time-out was performed verifying the site and side of surgery as well as the name of the patient. At this point the knee was assessed for range of motion while patient was under anesthesia. She was about 3-5 degrees short of full extension and could flex to about 80? of flexion. Her previous surgical incision was used and incised using 10. Blade. A new 10. Blade was then used to elevate medial lateral flaps at this point was noted that she had extensive scarring down to the anterior aspect of the extensor mechanism we spent quite a long time elevating the medial lateral flaps once this was completed marked out the medial parapatellar arthrotomy and this was opened using a new 10. Blade. At this point was noted that she had scarring of the extensor mechanism to the anterior femur with very little mobility of the extensor mechanism and patella. I then performed a medial peel as well as removing excess scar from the undersurface of the patellar tendon. I then removed copious scar from the medial lateral gutters as well as the undersurface of the extensor mechanism and the anterior femur. This took the majority of the surgical time. I was met thought call with scar removal and made several rounds slowly removing more more scar. I then circumscribed the scar from the undersurface of the patella and patellar button and removed this. I was not able to yasmeen the patella but I was able to translated out of the way. This point the 15 mm thick polyethylene was then removed and I began trialing with a 13 mm thick high flexion polyethylene. She is able to reach full extension and excellent flexion range of motion to about 130? of flexion. There was some degree of mid flexion instability on the medial side. I then trialed a 15 mm thick high flexion polyethylene and she was not able to quite reach full extension although she still maintained good flexion range of motion to approximately 120?. Due to her history of copious scar formation I elected the 13 mm thick high flexion polyethylene as I think that she will become stiffer rather than more mobile over time. The knee was thoroughly irrigated with pulse lavage normal saline. Aquamantys was then used to achieve hemostasis. The 13 mm high flexion polyethylene was then placed and the tabs were engaged both medially and laterally without soft tissue interference. Betadine solution was then placed in the wound allowed to sit for several minutes prior to being pulse lavage with copious normal saline. This point we used Aquamantys again to achieve hemostasis. The. To clear soft tissues were injected with local anesthetic this a 22 gauge needle was used to further spread of the injection. The medial parapatellar arthrotomy was then closed using 1. Vicryl interrupted fashion followed by running Quill suture followed by a running 2 Vicryl in the fat layer followed by 2 0 Vicryl interrupted fashion the subcutaneous layer followed by running 3-0 Stratafix Dermabond and Aquacel dressing. Complications: none Post-operative Condition: stable Disposition: PACU Plan for aftercare: Weightbearing as tolerated left lower extremity, 24 hours of postop antibiotics, aspirin 81 mg b.i.d. for 6 weeks for DVT prophylaxis, immediate aggressive range of motion with physical therapy.
[2020-11-23] MEDS: MORPHINE 10 MG/ML INJ IV ×3 (10:14→10:39)
[2020-11-23] MEDS: LORazepam 2 MG/ML INJ 0.25 MG IV (10:20)
[2020-11-23] MEDS: hydrOXYzine 50 MG/ML INJ 25 MG IM (10:28)
[2020-11-23] MEDS: OXYCODONE IR 5 MG TABLET PO (10:37)
[2020-11-23] MEDS: LACTATED RINGERS 1,000 ML 100 ML IV ×2 (13:00→22:35)
--- NOTE | 2020-11-23 13:24 | PT-IP ANOTE ---
Pt arrived AC floor around 12 pm. Attempted to see pt at 1:[address] Winters was by the door and he recommended immediate aggressive range of motion with physical therapy since pt's complicated surgical hx with L knee. However, pt was very drowsy and unable to maintain a meaningful conversation at the moment, along with no return in sensation and strength except L foot. Will see pt tomorrow morning. Left pt's post op booklet and educated pt to start ROM ex once she's more awake.
[2020-11-23] MEDS: ACETAMINOPHEN 325 MG TABLET 650 MG PO ×2 (14:47→20:59)
[2020-11-23] MEDS: IBUPROFEN 400 MG TABLET PO ×3 (14:48→20:59)
--- NOTE | 2020-11-23 15:39 | PC.NURSE ---
Pt recieved at 1156 to room 215. Lethargic but easily awakened. RT assessed and weaned to RA. PT attemtped to work with patient however will reattemtp tomorrow as patient is very sleeping. Approximately 1400 patient becoming more alert, Aakash at bedside. Denies pain reports increasing sensation to BLE's +ankle waves. No edema. LS CTA. + BS x4 reports LBM 10/22. Able to void at shift change. Skin assessment completed. Damian wrapped R knee with aquacell CDI. VSS, NSR on telemetry.
[2020-11-23] MEDS: OXYCODONE IR 10 MG TABLET PO ×2 (18:50→22:33)
[2020-11-23] MEDS: atenoloL 25 MG TABLET PO (20:58)
[2020-11-23] MEDS: DOCUSATE 100 MG CAPSULE PO (20:58)
[2020-11-23] MEDS: TIZANIDINE 4 MG TABLET PO (20:59)
[2020-11-23] MEDS: ASPIRIN EC 81 MG TABLET PO (20:59)
[2020-11-23] MEDS: ROSUVASTATIN 10 MG TABLET PO (20:59)
[2020-11-23] MEDS: MESALAMINE 0.375 GM 0.375 EACH PO (21:07)
[2020-11-23] MEDS: MELATONIN 3 MG TABLET 9 MG PO (22:34)
[2020-11-23] MEDS: hydrOXYzine pamoate 25 MG CAPSULE PO (22:34)
[2020-11-24] VITALS: BP 139/78; PULSE 93; RESP 16; TEMP 37; O2SAT 98
[2020-11-24] MEDS: OXYCODONE IR 10 MG TABLET PO ×5 (01:07→13:01)
[2020-11-24] MEDS: IBUPROFEN 400 MG TABLET PO ×4 (01:08→13:05)
[2020-11-24 05:00] VITALS: BP 123/65; PULSE 83; RESP 16; TEMP 36.4; O2SAT 99
[2020-11-24 05:57] LABS: Hematocrit 32.9 % (36-46)
[2020-11-24] MEDS: LEVOTHYROXINE 50 MCG TABLET 25 MCG PO (06:23)
--- NOTE | 2020-11-24 07:35 | PM.PNPO.1 ---
Subjective Subjective Date Patient Seen: 11/24/20 Time Patient Seen: 07:35 Interval history: Patient states she is doing well. She reports that her pain is controlled well with her current pain management regimen. She reports good sensation throughout the bilateral lower extremities. At this time she denies fever, chills, nausea, shortness of breath, or chest pain. Patient explains she is eager to work with physical therapy to work on her mobility. Exam Vital Signs (past 8 hours): - 11/24/20 00:00 11/24/20 05:00 Temperature 98.6 F 97.6 F Pulse Rate 93 H 83 Respiratory Rate 16 16 Blood Pressure 139/78 123/65 Pulse Oximetry 98 99 Oxygen Delivery Method Room Air Oxygen Flow Rate 0 Narrative Exam Narrative: 75-year-old female postop day 1. Patient is resting comfortably in bed, is in no acute distress, is alert and oriented x3. Skin is warm and dry, and the skin surrounding the incision is free of erythema, warmth, induration, or discharge. Patient has good sensation throughout the bilateral lower extremities, palpable pulses appreciated. Right hip flexion performed without difficulty or discomfort, left hip flexion is slightly limited due to pain. Calves are warm and soft, negative Rosalie's sign. No other signs of DVT appreciated. Ankle dorsiflexion, plantar flexion, inversion, eversion performed bilaterally without discomfort or difficulty. Const General: cooperative, healthy appearing and comfortable Resp Effort & Inspection: normal respiratory effort and able to speak in complete sentences Skin General: no rashes or lesions noted Objective Labs Result Diagrams: 11/24/20 05:40 Labs: Laboratory Results - last 24 hr 11/24/20 05:40 Hgb 11.0 L Hct 32.9 L PFSH Medical History Arthrofibrosis of total knee replacement Cervical osteoarthritis Chronic neutropenia Colon polyps Diverticulitis Eczema Failure of total knee replacement Former smoker History of Mohs micrographic surgery for skin cancer HLD (hyperlipidemia) Hypothyroidism Migraines Nephrolithiasis Pneumonia Spinal stenosis SVT (supraventricular tachycardia) Ulcerative colitis with complication Vitamin D deficiency Surgical History H/O cardiac radiofrequency ablation History of arthroplasty of left knee (03/21/16) History of colonoscopy History of esophagogastroduodenoscopy (EGD) History of hysterectomy History of surgery Hx of appendectomy Hx of arthroscopy of left knee Hx of cholecystectomy Hx of lumbar discectomy Hx of tonsillectomy Social History household members: spouse Smoking Status: Former smoker alcohol intake: current Assessment & Plan Post-op Postoperative Procedures: Procedures Operation Date: 11/23/20 07:45 Actual Procedures Side Surgeon p Open revision of total replacement of knee joint w. synovectomy, lysis of adhesions, & replacement of polyethylene liner Left Mitch Winters MD Postoperative day: 1 Postoperative status: doing well Postoperative plan: ambulate Postoperative plan narrative: Patient is to work on ambulating with physical therapy. Patient is to leave dressing over the incision dry and intact. Postoperative aspirin 81 mg is to be taken twice daily for 6 weeks for DVT prevention. Patient is to work on weight-bearing as tolerated, and to have immediate aggressive range of motion therapy with physical therapy. Time Spent With Patient Time with patient: 15-24 minutes Quality VTE Deep Vein Thrombosis/Pulmonary Embolism Present on Admission: No
[2020-11-24 08:00] VITALS: BP 113/60; PULSE 78; RESP 15; TEMP 36.6; O2SAT 100
[2020-11-24 08:28] VITALS: PULSE 79; RESP 16; O2SAT 99
[2020-11-24] MEDS: ACETAMINOPHEN 325 MG TABLET 650 MG PO ×2 (08:57→14:29)
[2020-11-24] MEDS: ASPIRIN EC 81 MG TABLET PO (08:58)
[2020-11-24] MEDS: GABAPENTIN 600 MG TABLET PO (08:58)
[2020-11-24] MEDS: DOCUSATE 100 MG CAPSULE PO (08:58)
[2020-11-24] MEDS: atenoloL 25 MG TABLET PO (08:59)
[2020-11-24] MEDS: estradioL 1 MG TABLET 0.5 MG PO (08:59)
[2020-11-24] MEDS: SODIUM CHLORIDE 0.9% FLUSH 10 ML IV (09:00)
[2020-11-24] MEDS: MESALAMINE 0.375 GM 0.75 EACH PO (09:01)
--- NOTE | 2020-11-24 09:04 | P.DS_ITS ---
History of Present Illness History of Present Illness Date Patient Seen: 11/24/20 Time Patient Seen: 09:04 Chief complaint: OPB Narrative: Refer to previous HPI. 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 Following the procedure the patient has been convalescing appropriately and pain has been managed with her current pain management regimen. Patient is working on ambulating and work on ag gressive range of motion exercises with physical therapy. Patient has tolerated her medications. Throughout the course of her stay in hospital the patient has denied fever, chills, urinary retention, nausea, shortness of breath, or chest pain. Status at Discharge Cognitive/behavioral status at discharge: oriented Functional status at discharge: uses cane/walker Time Spent with Patient Time spent: Greater than 30 minutes Exam Vital Signs (past 8 hours): - 11/24/20 05:00 11/24/20 08:00 11/24/20 08:28 Temperature 97.6 F 97.8 F Pulse Rate 83 78 79 Respiratory Rate 16 15 16 Blood Pressure 123/65 113/60 Pulse Oximetry 99 100 99 Oxygen Delivery Method Room Air Oxygen Flow Rate 0 Narrative Exam Narrative: 75-year-old female postop day 1. Patient is resting comfortably in bed, is in no acute distress, is alert and oriented x3. Skin is warm and dry, and the skin surrounding the incision is free of warmth, erythema, induration, or discharge. Patient has good sensation throughout the bilateral lower extremities with palpable pulses appreciated. Calves are soft and nontender, negative Homans sign. No other signs of DVT appreciated. Patient is able to flex the right hip without difficulty or discomfort, left hip flexion is limited slightly due to pain. Ankle inversion, eversion, dorsiflexion, plantar flexion is performed bilaterally without difficulty or discomfort. Capillary refill less than 2 seconds. Const General: cooperative, healthy appearing and comfortable Resp Effort & Inspection: normal respiratory effort and able to speak in complete sentences Skin General: no rashes or lesions noted Objective Labs Result Diagrams: 11/24/20 05:40 Labs: Laboratory Results - last 24 hr 11/24/20 05:40 Hgb 11.0 L Hct 32.9 L PFSH Medical History Arthrofibrosis of total knee replacement Cervical osteoarthritis Chronic neutropenia Colon polyps Diverticulitis Eczema Failure of total knee replacement Former smoker History of Mohs micrographic surgery for skin cancer HLD (hyperlipidemia) Hypothyroidism Migraines Nephrolithiasis Pneumonia Spinal stenosis SVT (supraventricular tachycardia) Ulcerative colitis with complication Vitamin D deficiency Surgical History H/O cardiac radiofrequency ablation History of arthroplasty of left knee (03/21/16) History of colonoscopy History of esophagogastroduodenoscopy (EGD) History of hysterectomy History of surgery Hx of appendectomy Hx of arthroscopy of left knee Hx of cholecystectomy Hx of lumbar discectomy Hx of tonsillectomy Social History household members: spouse Smoking Status: Former smoker alcohol intake: current Discharge Assessment & Plan Assessment and Plan Assessment: Patient is doing well and convalescing appropriately. Plan of Treatment: Patient is to continue outpatient physical therapy following discharge from the hospital. The 1st scheduled postoperative visit in the clinic is scheduled for 2 weeks following discharge from the hospital. Aspirin 81 mg b.i.d. is to be c ontinued for 6 weeks for DVT prophylaxis. Prescription medications are to be taken as directed. The dressing over the incision is to remain dry and intact. If the dressing is to become soiled or damaged the patient is to contact the clinic. Following discharge from the hospital the patient is to be weight- bearing as tolerated with orders to work on aggressive range of motion exercises with physical therapy. Patient is to contact the clinic with any concerns or any signs of fever, chills, shortness of breath, or discharge. Patient is also to contact the clinic if she notices any redness, excessive swelling, or discharge from the incision site. Discharge Plan Discharge Plan Patient Disposition: Home Discharge orders & Medications Prescriptions: New acetaminophen 325 mg Tablet 650 mg PO TID Qty: 90 RF: 0 aspirin 81 mg Tablet,Delayed Release (Dr/Ec) 81 mg PO BID Qty: 90 RF: 0 ibuprofen 400 mg Tablet 400 mg PO Q4HR Qty: 90 RF: 0 oxycodone 10 mg Tablet 10 mg PO Q3HR PRN (Reason: Pain, Severe (7-10)) Qty: 42 RF: 0 Continued atenolol 25 MG tablet 25 mg PO BID Qty: 0 RF: 0 estradiol [Estrace] 1 MG tablet 0.5 mg PO QDAY Qty: 0 RF: 0 levothyroxine 50 mcg Tablet 25 mcg PO DAILY Qty: 0 RF: 0 albuterol sulfate [Ventolin HFA] 90 MCG/PUFF HFA aerosol inhaler 2 puff INH PRN PRN (Reason: Shortness Of Breath) Qty: 0 RF: 0 cholecalciferol (vitamin D3) [Vitamin D3] 125 mcg (5,000 unit) Tablet 125 mcg PO DAILY Qty: 0 RF: 0 multivitamin Capsule 1 cap PO DAILY Qty: 0 RF: 0 tizanidine 4 MG tablet 4 mg PO HS Qty: 0 RF: 0 docusate sodium 100 mg Capsule 200 mg PO BEDTIME RF: 0 melatonin 10 mg Tablet 10 mg PO BEDTIME RF: 0 rosuvastatin 10 mg Tablet 10 mg PO BEDTIME RF: 0 mesalamine [Apriso] 0.375 gram Capsule,Extended Release 24hr 0.375 g PO SEEINSTR RF: 0 acetaminophen 325 mg Tablet 650 mg PO TID Qty: 60 RF: 0 gabapentin 600 mg Tablet 600 mg PO BID RF: 0 hydroxyzine pamoate 25 mg capsule 25 mg PO BEDTIME RF: 0 coQ10 (ubiquinol) 100 mg Capsule 100 mg PO DAILY RF: 0 Citrucel (sucrose) Powder RF: 0 Follow up/Referrals: Chata Anthony PA-C [Primary Care Provider] - Discharge Health Status Care Plan Goals: Weight bearing as tolerated with agressive range of motion exercises with physical therapy. Diet/Activity/Treatments Diet: Diet as Tolerated Activity: Weight bearing as tolerated. Skin/Wound/Dressing Care Report to your healthcare provider any signs of infection, such as:: chills, fever, night sweats, increased pain, unusual drainage and unusual redness Dressing: Leave dressing over incision clean and intact. If dressing is to become soiled or saturated contact the clinic. Visit Report/Discharge Packet Instructions: DI for Heart Failure, DI for Knee Replacement, DI for Prescription Opioid Use Stand Alone Forms: Surgery Discharge Discharge Data Primary Care Provider: Chata Anthony VTE Deep Vein Thrombosis/Pulmonary Embolism Present on Admission: No
--- NOTE | 2020-11-24 09:18 | CM.IDA ---
Initial DCP Assessment Note Patient is a 75 yo female, resident of [place]. Patient POd#1 status post revision of the left total knee arthroplasty DC order and summary completed by Ortho PAUL Goncalves and patient eager to return home w/family to assist. Patient awaiting her physical therapy eval. No needs identified from this PIPE WELDER, will follow closely in case DC needs or concerns arise before DC JUAN Hall Discharge Planning/Care Management CM Discharge Assessment Start: 11/24/20 09:16 Freq: Status: Active Protocol: Document 11/24/20 09:16 OLIVE (Rec: 11/24/20 09:18 OLIVE [id number]) Discharge Planning Assessment Assigned Back Closer JUAN Amador DPOA/Assigned Designee Name Aakash Lee, spouse Contact Information [phone] or [phone] Primary Care Provider Chata Anthony Advance Directives? Yes Advance Directives on File Yes History Provided By Patient,Medical Record Prior Living Arrangements House Household Members spouse Type of transporation used prior to Drives own vehicle admit Independent with ADL's Yes Is patient alert and oriented? Yes Comment Has necessary DME for safe return home, per patient Patient/Family Preference OP PT Therapy Barriers to Discharge No Discharge Plan Home Transportation Arrangement Spouse Referrals Initiated None needed Review Status In Process
--- NOTE | 2020-11-24 09:45 | PT.IIE ---
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 synovectomy, lysis of adhesions, & replacement of polyethylene liner(Left) - Mitch Winters MD Surgical History (Last Reviewed 11/24/20 @ 09:09 by Iggy Urbina PA-C) H/O cardiac radiofrequency ablation History of arthroplasty of left knee (03/21/16) History of colonoscopy History of esophagogastroduodenoscopy (EGD) History of hysterectomy History of surgery Hx of appendectomy Hx of arthroscopy of left knee Hx of cholecystectomy Hx of lumbar discectomy Hx of tonsillectomy Medical History (Last Reviewed 11/24/20 @ 09:09 by Iggy Urbina PA-C) Arthrofibrosis of total knee replacement Cervical osteoarthritis Chronic neutropenia Colon polyps Diverticulitis Eczema Failure of total knee replacement Former smoker History of Mohs micrographic surgery for skin cancer HLD (hyperlipidemia) Hypothyroidism Migraines Nephrolithiasis Pneumonia Spinal stenosis SVT (supraventricular tachycardia) Ulcerative colitis with complication Vitamin D deficiency Physical Therapy Inpatient Evaluation/Re-Eval M1 PT/OT-IP Prior Functional Status Start: 11/23/20 12:13 Freq: NEEDED Status: Active Protocol: Document 11/24/20 09:45 AB (Rec: 11/24/20 14:00 [email or web address]) Medical Review Prior Functional Status Diet/Fluid Consistency Regular Communication able to make needs known Mobility and Gait pt stated that she is independent with all mobilities and ambulation using FWW outdoors but uses her walking sticks for indoor mobility Activities of Daily Living and IADL's will obtain in the morning since pt's is very drowsy today. Prior Functional Level (Other details) pt stated that this is her 2nd revision on her knee. pt went to SNF after the first revision Social History Household Members spouse Living Arrangements House Number of Floors (Floors) One Floor Number of Stairs To Enter/Railing? 7 steps with B rails Home Environment Walk in Shower Home Equipment Raised Toilet Seat Without Armrests,Shower Seat with Backrest,Grab Bars Near Toilet ,Grab Bars In Shower M2 PT-IP Current Condition Start: 11/23/20 12:13 Freq: NEEDED Status: Active Protocol: Document 11/24/20 09:45 AB (Rec: 11/24/20 14:00 AB [email or web address]) Physical Therapy Current Condition Current Condition Evaluation Date 11/24/20 Treatment Diagnosis s/p L TKA revision; difficulty in walking Onset Date 11/23/20 Precautions Other Precautions per Dr. Winters: immediate aggressive ROM on L knee Weight Bearing Status Weight Bearing Status Weight Bear as Tolerated Allowed Weight Bearing Amount (enter % LLE WBAT or #) (%) M3 PT-IP Subjective Start: 11/23/20 12:13 Freq: NEEDED Status: Active Protocol: Document 11/24/20 09:45 AB (Rec: 11/24/20 14:00 AB [id number]) Subjective Physical Therapy Visit Type Type Initial Evaluation Visit Start Time 09:45 Visit Stop Time 10:45 Total Visit Minutes 60 Number of BAND AID MACHINE OPERATOR Visits 0 Physical Therapy Visit Comments Patient Comments agreeable to do PT; spouse in room with pt Therapy Pain Assessment Pain When Pain Assessed At Rest Pain Present Pain Present Pain Reported Location Left Knee Intensity 8 Scale Used increases with mobility Description Burning Pain Behaviors Crying,Facial Grimacing, Guarding,Holding Area,Wincing Pain Management Techniques Apply Cold,Distraction, Elevation,Modification of Treatment,Re-positioning, Timing of Activity with Medications M4 PT-IP Mobility and Gait Start: 11/23/20 12:13 Freq: NEEDED Status: Active Protocol: Document 11/24/20 09:45 AB (Rec: 11/24/20 14:00 AB [email or web address]) PT-Bed Mobility Assessment Supine to Sit Supine to Sit Standby Assistance Sit to Supine Sit to Supine Standby Assistance,Minimal Assistance PT-Transfer Assessment Sit to and From Stand Sit to and from Stand Minimal Assistance,Moderate Assistance,Maximum Assistance, 1 Person Assistance,Use of Upper Extremities Equipment Transfer Assistive Device Gait Belt,Front Wheeled Walker Orthotic/Prosthetic Devices or Brace: No Transfers Transfer Destination Bed Transfer Technique ambulated using FWW Transfer Ability Level of Assist Minimal Assistance,Moderate Assistance,1 Person Assistance ,Use of Upper Extremities Comments Mobility Comments pt sitting on chair. educated pt on knee HEP and stretching . informed pt that pt wanted immediate aggressive ROM of the L knee and pt agreed. completed seated knee flexion heel slide with ~ 15 sec hold. able to do ~ 70 deg of flexion with c/o increase pain . completed x3 reps. completed sit to stand mod A. instructed pt to sit back. educated on sit to stand techniques and pt completed sit to stand from chair min A. pt ambulated in room using FWW with initial mod A with (+ ) L knee slight buckling. cued for quads sets and pt was able to ambulate in room ~ 20 ft min A and cues. pt completed sit <>supine SBA with pt using RLE and B hands to assist LLE movement. caregiver training conducted. pt's spouse was able to put safety belt on pt. pt attempted sit to stand from EOB x 3 reps and unable to stand with spouse's assistance and c/o increase pain. completed sit to stand with PT assisiting max A and max cues . pt requested to lay back in bed and completed sit to supine min A with LE elevation . positioned pt in bed. call light and table placed within reach. informed pt and spouse regarding safety and level of assistance at this time and that PT is not recommending pt to go home at this time and will re-assess in the afternoon. informed nurse. Gait Assessment Gait Gait Assistance Required: Minimum Assistance,Moderate Assistance Distance (Feet) 20 Able to Maintain Weight Bearing Status Yes During Gait Assistive Devices Assistive Device Gait Belt,Front Wheeled Walker Orthotic/Prosthetic Devices or Brace: No Gait Deviations General Gait Pattern Decreased Stride Length, Decreased Feet Clearance, Narrow Based Gait,Step-to Gait Factors Limiting Gait Function Factors Limiting Gait Function Decreased Activity Tolerance, Decreased Strength,Difficulty Following Directions,Limited Range of Motion,Pain,Poor Balance,Poor Safety Awareness PT-Balance Assessment Sitting Balance and Reactions Static Sitting Balance Ability Good Dynamic Sitting Balance Ability Good Standing Balance and Reactions Static Standing Balance Ability Fair Dynamic Standing Balance Ability Fair Device Used FWW M5 PT-IP Objective Assessments Start: 11/23/20 12:13 Freq: NEEDED Status: Active Protocol: Document 11/24/20 09:45 AB (Rec: 11/24/20 14:00 AB [id number]) Orientation Orientation/Cognition Level of Alertness Alert Orientation Name,Place,Situation Language Function Ability No Deficits Noted Safety Awareness Decreased Safety Awareness Memory Description Short Term Impaired Comments pt with difficulty following instruction and decrease carryover of techniques and possibly due to c/o increase pain and also maybe pain meds related Gross Range of Motion Lower Extremity ROM Assessment Left Impaired Impairments L knee flexion: PROM: ~ 80 deg knee extension: ~ 15 deg lacking to 0 Strength Lower Extremity Strength Assessment Left Impaired Hip 3+/5 Knee 3-/5 Sensation Assessment Sensation Gross Sensation WNL Muscle Tone Muscle Tone WNL Yes M6 PT-IP Treatment Start: 11/23/20 12:13 Freq: NEEDED Status: Active Protocol: Document 11/24/20 09:45 AB (Rec: 11/24/20 14:00 AB [email or web address]) Physical Therapy Treatment Exercises Exercises Heel Slides,Seated Knee Flexion/Extension Education Education Provided Precautions,Weight Bearing Status,Post-Op Packet,Safety M7 PT-IP Assessment and Plan Start: 11/23/20 12:13 Freq: NEEDED Status: Active Protocol: Document 11/24/20 09:45 AB (Rec: 11/24/20 14:00 AB [email or web address]) PT Summary Assessment and Plan Potential Rehabilitation Potential Good Status of Condition at Evaluation Evolving Summary Impairments Pain,ROM,Strength,Balance, Coordination,Sensation,Tone, Cognition,Bed Mobility, Transfers,Gait,Activity Tolerance Assessment Summary pt requiring mod to max A with sit to stand. caregiver training initiated but spouse was unable to assist pt with sit to stand and pt with c/o increase pain and was not able to tolerate much activity. will have to conduct further caregiver training and re- assess safe d/c plan. at this time, pt may require SNF. pt has 7 steps to get into the house and was not appropriate to do stair climbing during this morning's PT session. Goals Bed Mobility Goal Independent Transfer Goal Standby Assistance Gait Goal Standby Assistance Gait Distance 100 Other Goals up/down 7 steps B rails SBA Days to Meet Goals 5 Frequency of Treatment Frequency Of Treatment Twice a Day Treatment Plan Physical Therapy Treatment Plan Bed Mobility Training,Transfer Training,Gait Training, Therapeutic Exercise,Balance Retraining,Post Op Education, Discharge Planning,Hot or Cold Pack,Neuromuscular Re-ed, Coordination Retraining,Manual Therapy Precautions Other Precautions per Dr. Winters: immediate aggressive ROM of L knee WBAT LLE Recommendations To Nursing Amount of Assist Needed 1 Person Assist Discharge Recommendations PT Discharge Recommendations Home with 24/7 Assist Available,Home Health,SNF Rehab,Outpatient PT Other Discharge Recommendations depending on progress: SNF vs home with 24/7/HHPT/outpt PT Transportation Needs at Discharge Private Vehicle,Wheelchair/ Cabulance
[2020-11-24 12:59] VITALS: BP 116/72; PULSE 74; RESP 15; TEMP 36.8; O2SAT 100
--- NOTE | 2020-11-24 13:34 | PC.NURSE ---
Addendum entered by Paris Lilly R.N. 11/24/20 15:18: This afternoon patient feeling much better and able to work with PT/OT to complete stairs ambulating all the way to the stairs. and patient and therapy feel comfortable, confident and safe with discharging home this afternoon. IV dc'd. RN reviewed all instructions, gave patient prescriptions and follow up activity and appointment info. Spouse and patient verbalize understanding. RN escorted patient to private vehicle with FWW , home medications and all of her belongings. Original Note: Pt A&Ox3. LS CTA, VSS, afebrile on RA. CMS+ to LLE. minimal swelling to L knee. Aquacel dressing C/D/I. PAUL Urbina at bedside clearing patient for discharge pending PT/OT. Pt able to get up to BSC with x1 assist with FWW. Pt with good pain control with PRN oxycodone 10mg q 3 hour PRN, and scheduled ibuprofen and tylenol. Reports pain tolerable at 4/10 but when working with PT limited due to pain and tearful. Pt desires to d/c home with vs discharging to SNF for rehabillitation, however noted that there are 7 steps at home. Plan for PT/OT to revisit and this afternoon and x 2 more sessions tomorrow for caregiver training.
--- NOTE | 2020-11-24 14:32 | PT.IPTN ---
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 synovectomy, lysis of adhesions, & replacement of polyethylene liner(Left) - Mitch Winters MD Physical Therapy Treatment Note M2 PT-IP Current Condition Start: 11/23/20 12:13 Freq: NEEDED Status: Active Protocol: Document 11/24/20 09:45 AB (Rec: 11/24/20 14:00 AB [id number]) Physical Therapy Current Condition Current Condition Evaluation Date 11/24/20 Treatment Diagnosis s/p L TKA revision; difficulty in walking Onset Date 11/23/20 Precautions Other Precautions per Dr. Winters: immediate aggressive ROM on L knee Weight Bearing Status Weight Bearing Status Weight Bear as Tolerated Allowed Weight Bearing Amount (enter % LLE WBAT or #) (%) M3 PT-IP Subjective Start: 11/23/20 12:13 Freq: NEEDED Status: Active Protocol: Document 11/24/20 13:38 CLB (Rec: 11/24/20 15:41 CLB [id number]) Subjective Physical Therapy Visit Type Type Treatment Note Visit Start Time 13:38 Visit Stop Time 14:32 Total Visit Minutes 54 Notes present for CG training. Number of CLINICAL SERVICES SPECIALIST Visits 1 Physical Therapy Visit Comments Patient Comments agreeable to do PT; spouse in room with pt Therapy Pain Assessment Pain When Pain Assessed At Rest Pain Present Pain Present Pain Reported Location Left Knee Intensity 5 Scale Used increases with mobility Description Burning Pain Behaviors Wincing Pain Management Techniques Modification of Treatment,Re- positioning,Timing of Activity with Medications M4 PT-IP Mobility and Gait Start: 11/23/20 12:13 Freq: NEEDED Status: Active Protocol: Document 11/24/20 13:38 CLB (Rec: 11/24/20 15:41 CLB [id number]) PT-Bed Mobility Assessment Supine to Sit Supine to Sit Standby Assistance Sit to Supine Sit to Supine Standby Assistance Scooting Scooting to Edge of Bed Standby Assistance PT-Transfer Assessment Sit to and From Stand Sit to and from Stand Standby Assistance,Contact Guard Assistance,1 Person Assistance,Use of Upper Extremities Equipment Transfer Assistive Device Gait Belt,Front Wheeled Walker Orthotic/Prosthetic Devices or Brace: No Transfers Transfer Destination Bed,Chair Transfer Technique ambulated using FWW Transfer Ability Level of Assist Standby Assistance,Contact Guard Assistance,Use of Upper Extremities Comments Mobility Comments Pt in bed requiring SBA to EOB , Pt able to mikey right shoe then assisted pt with left shoe. Pt required CGA for sit-stand from bed with verbal cues for quad activation. Pt ambulated with step to gait pattern then able to use step thru gait pattern with good foot clearance and step length. Pt climbed three steps with rail x2 SBA. Pt then ambulated back to room sitting in chair for seated ther ex. Pt able to flx knee to ~110 degrees in sitting. Pt returned to bed transferring SBA and to supine performing all other ther ex in supine. Pt left in bed with all needs within reach. present. Informed RN that pt could go home but pt was unsure if she felt ready possibly wanting another PT session tomorrow morning before d/c. Gait Assessment Gait Gait Assistance Required: Standby Assistance,Contact Guard Assist,1 Person Assist Distance (Feet) 200 Able to Maintain Weight Bearing Status Yes During Gait Assistive Devices Assistive Device Gait Belt,Front Wheeled Walker Orthotic/Prosthetic Devices or Brace: No Gait Deviations General Gait Pattern Antalgic Factors Limiting Gait Function Factors Limiting Gait Function Decreased Activity Tolerance, Decreased Strength,Limited Range of Motion,Pain,Poor Balance Comments Gait Comments see mobility section Stair Climbing Assessment Evaluation Level of Assist On Stairs Standby Assistance Devices Stair Climbing Assistive Devices Left Railing,Right Railing Technique/Endurance Stair Climbing Direction Ascend and Descend Stair Climbing Technique Step to Step Number of Steps Climbed 3 Stair Climbing Set # Repetitions (reps) 2 M5 PT-IP Objective Assessments Start: 11/23/20 12:13 Freq: NEEDED Status: Active Protocol: Document 11/24/20 09:45 AB (Rec: 11/24/20 14:00 AB [id number]) Orientation Orientation/Cognition Level of Alertness Alert Orientation Name,Place,Situation Language Function Ability No Deficits Noted Safety Awareness Decreased Safety Awareness Memory Description Short Term Impaired Comments pt with difficulty following instruction and decrease carryover of techniques and possibly due to c/o increase pain and also maybe pain meds related Gross Range of Motion Lower Extremity ROM Assessment Left Impaired Impairments L knee flexion: PROM: ~ 80 deg knee extension: ~ 15 deg lacking to 0 Strength Lower Extremity Strength Assessment Left Impaired Hip 3+/5 Knee 3-/5 Sensation Assessment Sensation Gross Sensation WNL Muscle Tone Muscle Tone WNL Yes M6 PT-IP Treatment Start: 11/23/20 12:13 Freq: NEEDED Status: Active Protocol: Document 11/24/20 13:38 CLB (Rec: 11/24/20 15:41 CLB [id number]) Physical Therapy Treatment Exercises Exercises Ankle Pumps,Quad Sets,Heel Slides,Straight Leg Raises, Short Arc Quads,Seated Knee Flexion/Extension Education Education Provided Precautions,Weight Bearing Status,Post-Op Packet,Safety M7 PT-IP Assessment and Plan Start: 11/23/20 12:13 Freq: NEEDED Status: Active Protocol: Document 11/24/20 13:38 CLB (Rec: 11/24/20 15:41 CLB [id number]) PT Summary Assessment and Plan Potential Rehabilitation Potential Good Status of Condition at Evaluation Evolving Summary Impairments Pain,ROM,Strength,Balance, Coordination,Sensation,Tone, Cognition,Bed Mobility, Transfers,Gait,Activity Tolerance Progress Towards Goals Progressing Toward Goals Assessment Summary Pt improving with all mobility with better pain control. Pt is SBA for bed mobility, sit<> stand and gait. Pt was able to climb two sets of three steps SBA. Pt ambulates with step thru gait pattern with c/o burning in knee near incision. Pt is able to assist pt upon d/c. Pt has OP PT scheduled for Tuesday 11/28. Goals Bed Mobility Goal Independent Transfer Goal Standby Assistance Gait Goal Standby Assistance Gait Distance 100 Other Goals up/down 7 steps B rails SBA Days to Meet Goals 5 Frequency of Treatment Frequency Of Treatment Twice a Day Treatment Plan Physical Therapy Treatment Plan Bed Mobility Training,Transfer Training,Gait Training, Therapeutic Exercise,Balance Retraining,Post Op Education, Discharge Planning,Hot or Cold Pack,Neuromuscular Re-ed, Coordination Retraining,Manual Therapy Precautions Other Precautions per Dr. Winters: immediate aggressive ROM of L knee WBAT LLE Discharge Recommendations PT Discharge Recommendations Home with 04/03 Assist Available,Outpatient PT Transportation Needs at Discharge Private Vehicle,Wheelchair/ Cabulance
== END 2020-11-24 15:15 | disposition home or self-care (01) | DRG 488 ==
LOC: OR 06:21 → AC 06:21
PROVIDERS: Admitting Provider Orthopaedic Surgery Adult Reconstructive Orthopaedic Surgery; PCP Physician Assistant; Referring Provider Physician Assistant; Visit Provider Orthopaedic Surgery Adult Reconstructive Orthopaedic Surgery
PROC: 0SPD09Z Removal of Liner from Left Knee Joint, Open Approach (ICD-10-PCS; principal; 2020-11-23 07:45)
DX: T84.82XA Fibrosis due to internal orthopedic prosthetic devices, implants and grafts, initial encounter (principal); I47.1 Supraventricular tachycardia; E03.9 Hypothyroidism, unspecified; I10 Essential (primary) hypertension; E78.5 Hyperlipidemia, unspecified; J44.9 Chronic obstructive pulmonary disease, unspecified; M70.62 Trochanteric bursitis, left hip; M17.11 Unilateral primary osteoarthritis, right knee; Z20.822 Contact with and (suspected) exposure to COVID-19; Z87.891 Personal history of nicotine dependence
CPT/HCPCS: 36415; 73560; 85014; 85018; 87635; 94760; 97110; 97116; 97162; 97530; C1776; C9803; A9270; J0690; J1100; J1885; J2060; J2270; J2405; J2704; J3010; J3410

== ENCOUNTER → 2020-12-14 12:20 | Outpatient (CLI) | payer MEDICARE, OTHER, SELFPAY ==
[2020-11-23 14:29] VITALS: BMI 24.4
[2020-12-14 13:39] LABS: BUN Creatinine Ratio 26.8 (6-22); Blood Urea Nitrogen 15 mg/dL (7-17); Calcium 10.2 mg/dL (8.4-10.2); Carbon Dioxide 27 mmol/L (22-32); Chloride 104 mmol/L (98-107); Estimated Glomerular Filt Rate > 60.0 mL/min (>60); Glucose 83 mg/dL (80-110); HEMOLYSIS < 15 (0-50); Potassium 4.5 mmol/L (3.4-5.1); Sodium 140 mmol/L (137-145)
[2020-12-15 04:13] LABS: Immunoglobulin A 243 mg/dL (64-422)
[2020-12-15 19:07] LABS: Anti Gliadin IgG Ab 1 units (0-19); Gliadin Gluten IgA 3 units (0-19); Tissue Transglutaminase IgA <2 U/mL (0-3); Tissue Transglutaminase IgG <2 U/mL (0-5)
== END ==
PROVIDERS: PCP Physician Assistant; Referring Provider Physician Assistant; Visit Provider Physician Assistant
DX: K51.20 Ulcerative (chronic) proctitis without complications (principal)
CPT/HCPCS: 36415; 80048; 82784; 83516

== ENCOUNTER → 2021-04-27 09:11 | Outpatient (CLI) | payer MEDICARE, OTHER, SELFPAY ==
[2020-11-23 14:29] VITALS: BMI 24.4
[2021-04-27 10:28] LABS: Alanine Aminotransferase 22 IU/L (<35); Alkaline Phosphatase 58 U/L (38-126); Aspartate Aminotransferase 32 IU/L (14-36); BUN Creatinine Ratio 24.6 (6-22); Bilirubin Total 0.9 mg/dL (0.2-1.3); Blood Urea Nitrogen 14 mg/dL (7-17); Calcium 9.7 mg/dL (8.4-10.2); Carbon Dioxide 31 mmol/L (22-32); Chloride 106 mmol/L (98-107); Estimated Glomerular Filt Rate > 60.0 mL/min (>60); Globulin 2.9 g/dL (1.7-4.1); Glucose 88 mg/dL (80-110); Sodium 140 mmol/L (137-145); Total Protein 6.9 g/dL (6.3-8.2)
[2021-04-27 10:29] LABS: Albumin Globulin Ratio 1.4 (1.0-2.8); Cholesterol 165 mg/dL (140-199); HDL Cholesterol 74 mg/dL (40-60); HEMOLYSIS 16 (0-50); LDL Cholesterol Calculated 75 mg/dL (<100); Triglycerides 79 mg/dL (35-150)
[2021-04-27 11:01] LABS: TSH w/ Reflex to FT4 1.98 uIU/mL (0.47-4.68)
== END ==
PROVIDERS: PCP Physician Assistant; Referring Provider Physician Assistant; Visit Provider Physician Assistant
DX: E03.9 Hypothyroidism, unspecified (principal); R94.5 Abnormal results of liver function studies; E78.00 Pure hypercholesterolemia, unspecified
CPT/HCPCS: 36415; 80053; 80061; 84443

== ENCOUNTER → 2021-11-01 08:32 | Outpatient (CLI) | payer MEDICARE, OTHER, SELFPAY ==
[2020-11-23 14:29] VITALS: BMI 24.4
[2021-11-01 09:20] LABS: Add Manual Diff / Slide Review NO; Basophils Absolute Auto 100 /uL (0-100); Basophils Percent Auto 1.1 % (0-2); Eosinophils Absolute Auto 300 /uL (0-450); Eosinophils Percent Auto 4.7 % (2-4); Hematocrit 42.4 % (36-46); Hemoglobin 14.5 g/dL (12.0-16.0); Lymphocytes Absolute Auto 1500 /uL (1100-4500); Lymphocytes Percent Auto 20.5 % (25-40); Mean Corpuscular HGB Conc 34.3 % (30-36); Mean Corpuscular Hemoglobin 30.9 PG (26-34); Mean Corpuscular Volume 90.2 fL (80-100); Monocytes Absolute Auto 800 /uL (0-900); Monocytes Percent Auto 11.3 % (3-14); Neutrophils Absolute Auto 4600 /uL (1500-7000); Neutrophils Percent Auto 62.4 % (50-75); Platelet Count 222 X10^3/uL (150-400); Red Cell Distribution Width 13.6 % (11.6-14.8); White Blood Cell Count 7.4 X10^3/uL (4.5-11.0)
[2021-11-01 09:59] LABS: Alanine Aminotransferase 25 IU/L (<35); Albumin 4.5 g/dL (3.5-5.0); Albumin Globulin Ratio 1.7 (1.0-2.8); Alkaline Phosphatase 67 U/L (38-126); Aspartate Aminotransferase 33 IU/L (14-36); Bilirubin Total 0.7 mg/dL (0.2-1.3); Blood Urea Nitrogen 14 mg/dL (7-17); Calcium 10.1 mg/dL (8.4-10.2); Carbon Dioxide 27 mmol/L (22-32); Chloride 105 mmol/L (98-107); Estimated Glomerular Filt Rate > 60.0 mL/min (>60); Globulin 2.7 g/dL (1.7-4.1); Glucose 95 mg/dL (80-110); HEMOLYSIS < 15 (0-50); Potassium 3.9 mmol/L (3.4-5.1); Sodium 139 mmol/L (137-145); Total Protein 7.2 g/dL (6.3-8.2)
[2021-11-01 10:57] LABS: Folate 15.9 ng/mL (2.76-20.0); Vitamin B12 742 pg/mL (239-931)
== END ==
PROVIDERS: PCP Physician Assistant; Referring Provider Physician Assistant; Visit Provider Physician Assistant
DX: R41.3 Other amnesia (principal)
CPT/HCPCS: 36415; 80053; 82607; 82746; 84443; 85025

== ENCOUNTER → 2021-11-05 08:38 | Outpatient (CLI) | payer MEDICARE, OTHER, SELFPAY ==
[2020-11-23 14:29] VITALS: BMI 24.4
--- NOTE | 2021-11-05 08:39 | DI.MRI.S_ITS ---
PROCEDURE: MR HEAD/BRAIN WO/W CON INDICATIONS: Other amnesia TECHNIQUE: Noncontrast axial T1 spin echo, axial T2 fast spin echo, sagittal and axial FLAIR, coronal T2 fast spin echo, axial gradient echo, axial diffusion and ADC through the brain. After the administration of contrast, axial and coronal 3D VIBE or T1 spin echo with fat saturation through the brain. COMPARISON: None. FINDINGS: Image quality: Excellent. CSF Spaces: Basal cisterns are patent. No extra-axial fluid collections. Ventricles are normal in size and shape. Brain: No midline shift. No intracranial bleeds or masses. There is mild, diffuse cerebral volume loss. There are minimal periventricular and subcortical white matter chronic microvascular ischemic changes. No abnormal intracranial enhancement. The brainstem appears normal. Diffusion-weighted images demonstrate no acute ischemic insults. No chronic ischemic insults. Normal intravascular flow voids are present. Dural sinuses demonstrate normal postcontrast enhancement. Skull and face: Calvarial marrow is normal in signal. Orbits appear normal. Sinuses: Sinuses and mastoids appear clear. IMPRESSION: No acute intracranial disease process. Dictated by: Stacey Griffith MD, PhD on 11/06/2021 at 11:02 Approved by: Stacey Griffith MD, PhD on 11/06/2021 at 11:14
== END ==
PROVIDERS: PCP Physician Assistant; Referring Provider Physician Assistant; Visit Provider Physician Assistant
DX: R41.3 Other amnesia (principal); R44.8 Other symptoms and signs involving general sensations and perceptions
CPT/HCPCS: 70553; A9579

== ENCOUNTER → 2021-11-06 11:05 | Outpatient (CLI) | payer MEDICARE, OTHER, SELFPAY ==
[2020-11-23 14:29] VITALS: BMI 24.4
[2021-11-06 13:46] LABS: COVID19 -Nasal RAPID Negative (Negative)
== END ==
PROVIDERS: PCP Physician Assistant; Visit Provider Family Medicine Sleep Medicine
DX: Z20.822 Contact with and (suspected) exposure to COVID-19 (principal)
CPT/HCPCS: 87635; C9803

== ENCOUNTER 2021-11-08 09:24 | Day surgery (SDC) | payer MEDICARE, OTHER, SELFPAY ==
[2020-11-23 14:29] VITALS: BMI 24.4
[2021-11-08] VITALS (7 sets, daily range): BP systolic 127–150; BP diastolic 62–72; PULSE 66–85; RESP 10–18; TEMP 36.2–36.6; O2SAT 98–100; BMI 24.7
--- NOTE | 2021-11-08 | PATH_ITS ---
[facility] Accession Number: [id number] . 01 Material submitted: . PART A: colon - RIGHT COLON BX PART B: colon - TRANSVERSE COLON BX PART C: colon - LEFT COLON BX . 02 Diagnosis: A-C. Right, Transverse, Left Colon, Biopsies: Colonic mucosa with no significant diagnostic abnormality. Negative for active inflammation, granulomas, dysplasia, and malignancy. V 11/13/2021 1035 Local . 02 Electronically signed: . Mack Whitaker MD, PhD, Pathologist NPI- [id number] . 01 Gross description: . Part A: RIGHT COLON BX: Received in formalin are 4 fragment(s) of stephenson, soft tissue measuring 0.4 x 0.3 x 0.2 cm to 0.2 x 0.1 x 0.1 cm submitted entirely in 1 cassette(s) Part B: TRANSVERSE COLON BX: Received in formalin are 4 fragment(s) of stephenson, soft tissue measuring 0.4 x 0.2 x 0.1 cm to 0.1 x 0.1 x 0.1 cm submitted entirely in 1 cassette(s) Part C: LEFT COLON BX: Received in formalin are multiple fragment(s) of stephenson, soft tissue measuring 1.2 x 0.5 x 0.2 cm in aggregate submitted entirely in 1 cassette(s) /[facility] 11/10/2021 1107 Local . 02 Pathologist provided ICD-10: K51.00, Z86.010 . 02 CPT . 665296, [id number], 688277 Specimen Comment: A courtesy copy of this report has been sent to [phone] Performed at: 01 [facility] [address] [place] [address], [place], [place] [id number] MD Navid Mathew MD Phone: [phone] Performed at: 02 [facility] [id number] [place] [address] [place], [place] [id number] MD Danielle Riggs MD Phone: [phone]
[2021-11-08] MEDS: SODIUM CHLORIDE 0.9% 1,000 ML 84 ML IV (10:13)
--- NOTE | 2021-11-08 10:22 | PM.HP.1 ---
History of Present Illness History of Present Illness Date Patient Seen: 11/08/21 Chief complaint: SDC Narrative: Ulcerative colitis need for colorectal cancer screening Patient History Medical History Arthrofibrosis of total knee replacement Cervical osteoarthritis Chronic neutropenia Colon polyps Diverticulitis Eczema Failure of total knee replacement Former smoker History of Mohs micrographic surgery for skin cancer HLD (hyperlipidemia) Hypothyroidism Migraines Nephrolithiasis Pneumonia Spinal stenosis SVT (supraventricular tachycardia) Ulcerative colitis with complication Vitamin D deficiency Surgical History H/O cardiac radiofrequency ablation History of arthroplasty of left knee (03/21/16) History of colonoscopy History of esophagogastroduodenoscopy (EGD) History of hysterectomy History of surgery Hx of appendectomy Hx of arthroscopy of left knee Hx of cholecystectomy Hx of lumbar discectomy Hx of tonsillectomy Family & Social History Social History: household members spouse Tobacco & Substance use: Tobacco type cigarettes Smoking Status Former smoker alcohol intake current alcohol intake frequency a few times a month Substance Use Type does not use Meds Home Medications and Allergies Home Medications Medication Instructions Recorded Confirmed Type albuterol sulfate 90 mcg/actuation 2 puff INH PRN PRN #0 06/12/12 11/08/21 History aerosol inhaler (Ventolin HFA) atenolol 25 mg tablet 25 mg PO BID #0 06/12/12 11/08/21 History cholecalciferol (vitamin D3) 125 125 mcg PO DAILY #0 06/12/12 11/15/20 History mcg (5,000 unit) tablet (Vitamin D3) levothyroxine 50 mcg tablet 25 mcg PO DAILY #0 06/12/12 11/23/20 History multivitamin 1 cap PO DAILY #0 06/12/12 11/15/20 History tizanidine 4 mg tablet 4 mg PO HS #0 03/06/16 11/23/20 History docusate sodium 100 mg capsule 200 mg PO BEDTIME 05/09/20 11/08/21 History melatonin 10 mg tablet 10 mg PO BEDTIME 05/09/20 11/23/20 History mesalamine 0.375 gram 0.375 g PO SEEINSTR 05/09/20 11/23/20 History capsule,extended release 24 hr (Apriso) rosuvastatin 10 mg tablet 10 mg PO BEDTIME 05/09/20 11/23/20 History gabapentin 600 mg tablet 600 mg PO BID 11/15/20 11/23/20 History hydroxyzine pamoate 25 mg capsule 25 mg PO BEDTIME 11/15/20 11/23/20 History duloxetine 30 mg capsule,delayed 30 mg PO DAILY 11/08/21 11/08/21 History release omeprazole 20 mg capsule,delayed 20 mg PO DAILY 11/08/21 11/08/21 History release Allergies Allergy/AdvReac Type Severity Reaction Status Date / Time hydromorphone AdvReac Severe PROJECTILE Verified 11/08/21 09:43 VOMITING. codeine AdvReac Intermediate Nausea Verified 11/08/21 09:43 NSAIDS (Non-Steroidal AdvReac Intermediate Gastrointestinal Verified 11/08/21 09:43 Anti-Inflamma Upset zolpidem [From AMBIEN] AdvReac Intermediate ATYPICAL Verified 11/08/21 09:43 BEHAVIORS/AMNESIA aspirin AdvReac Does not Verified 11/08/21 09:43 take due to colitis Exam Vital Signs (past 8 hours): - 11/08/21 10:00 Temperature 97.9 F Pulse Rate 85 Respiratory Rate 18 Blood Pressure 150/71 H Pulse Oximetry 99 Oxygen Delivery Method Room Air Narrative Exam Narrative: Oropharynx free of lesions Chest clear to auscultation percussion Cardiac exam reveals no S3 or murmur Assessment & Plan Assessment & Plan narrative: History of ulcerative colitis need for colorectal cancer screening. Risks, benefits, alternatives have been explained. Time Spent With Patient Critical Care time: I spent a total of [] minutes of critical care time on this patient's care today; this time is exclusive of procedural time.
--- NOTE | 2021-11-08 10:24 | PM.OP.COLON ---
Operative Date/Time/Diagnoses Date of procedure: 11/08/21 Pre-op diagnosis: See indication and findings Procedure & Clinicians Study performed: Colonoscopy Indications: Ulcerative colitis Surgeon: Vee Wood Procedure Notes Procedure in detail: After informed consent was obtained the patient was placed in left lateral decubitus position. The video colonoscope was introduced the rectum slowly advanced to the cecum. The procedure was made more difficult by extensive sigmoid diverticulosis. On slow withdrawal mucosa was carefully examined. Preparation was good. The scope was removed. The patient tolerated the procedure well. Blood loss none Complications none Sedation mac Findings 1. Extensive sigmoid and left-sided diverticulosis 2 completely normal colonic mucosa. Two biopsies were taken every 10 cm and divided into right colon, transverse colon, and left colon biopsies. No colitis was seen. Will follow up on biopsies but regardless was worried will need follow-up colonoscopy in 2 years.
--- NOTE | 2021-11-08 10:31 | SUR.OPER ---
PATIENT MOVED TO ENDO SUITE WHILE DR LIZAMA WAS DICTATING H&P
== END 2021-11-08 11:24 | disposition home or self-care (01) ==
PROVIDERS: PCP Physician Assistant; Referring Provider Internal Medicine Gastroenterology; Visit Provider Internal Medicine Gastroenterology
PROC: 0DJD8ZZ Inspection of Lower Intestinal Tract, Via Natural or Artificial Opening Endoscopic (ICD-10-PCS; CPT 45378; principal; 2021-11-08 10:30)
DX: Z87.19 Personal history of other diseases of the digestive system (principal); Z86.010 Personal history of colon polyps; J44.9 Chronic obstructive pulmonary disease, unspecified; K57.30 Diverticulosis of large intestine without perforation or abscess without bleeding
CPT/HCPCS: 45380; J2704